=== PATIENT | male | born 1990 | race Hispanic/Latino ===

== ENCOUNTER 2017-07-24 06:33 | Emergency (ER) | payer SELFPAY ==
--- NOTE | 2017-07-24 07:09 | ER ---
Nurse's Notes [facility] Name: Elias Billy Age: 27 yrs Sex: Male : 1990 Arrival Date: 07/24/2017 Time: 06:34 Bed 19 Private MD: Diagnosis: Low back pain Presentation: 07/24 06:47 Presenting complaint: Patient states: "I've been having lower back pain since yesterday bs1 and it just progressively got worse, I have a hx of a punctured disc when I played football.". Transition of care: patient was not received from another setting of care. Onset of symptoms was July 23, 2017. Initial Sepsis Screen: Does the patient meet any 2 criteria? No. Patient's initial sepsis screen is negative. Does the patient have a suspected source of infection? No. Patient's initial sepsis screen is negative. Care prior to arrival: Medication(s) given: Tylenol, 1000 mg. 06:47 Method Of Arrival: Ambulatory bs1 06:47 Acuity: SUSIE 4 bs1 Triage Assessment: 06:58 General: Appears. ao Historical: - Allergies: 06:49 No Known Allergies; bs1 - Home Meds: 06:49 None [Active]; bs1 - PMHx: 06:49 Cellulitis; Panic Attacks; punctured disc; bs1 - PSHx: 06:49 None; bs1 - Immunization history:: Adult Immunizations up to date. - Social history:: Smoking status: Patient/guardian denies using tobacco. Screenin:58 Abuse screen: Denies threats or abuse. Denies injuries from another. Nutritional ao screening: No deficits noted. Tuberculosis screening: No symptoms or risk factors identified. Fall Risk None identified. Assessment: 07:15 General: Appears in no apparent distress. uncomfortable, Behavior is calm, cooperative. em General: Reports hx of herniated disc, but was aggravated yesterday. Pain: Complains of pain in low back area Pain currently is 10 out of 10 on a pain scale. Pain began 1 day ago. Neuro: Level of Consciousness is awake, alert, obeys commands, Oriented to person, place, time, situation, Denies paresthesias. Cardiovascular: Capillary refill < 3 seconds Patient's skin is warm and dry. Respiratory: Airway is patent Respiratory effort is even, unlabored, Respiratory pattern is regular, symmetrical. GI: Abdomen is round. : No signs and/or symptoms were reported regarding the genitourinary system. Derm: Skin is intact, Skin is pink, warm \\T\\ dry. Musculoskeletal: Circulation, motion, and sensation intact. Capillary refill < 3 seconds, Range of motion: intact in all extremities. 19:29 Reassessment: Patient appears in no apparent distress at this time. I agree with the assessments above by Miguel A Berrios LVN. Vital Signs: 06:49 BP 136 / 81; Pulse 70; Resp 17; Temp 98.1(O); Pulse Ox 100% on R/A; Weight 108.86 kg; bs1 Height 5 ft. 11 in. (180.34 cm) (R); Pain 10/10; 07:28 BP 123 / 78; Pulse 67; Resp 16; Pulse Ox 100% on R/A; em 06:49 Body Mass Index 33.47 (108.86 kg, 180.34 cm) bs1 ED Course: 06:34 Patient arrived in ED. am2 06:48 Triage completed. bs1 06:49 Mike Cabrales PA is PHCP. jr8 06:49 Ben Arias MD is Attending Physician. jr8 07:23 Miguel A Berrios LVN is Primary Nurse. em 07:27 Arm band placed on. em 07:27 No provider procedures requiring assistance completed. Patient did not have IV access em during this emergency room visit. 07:28 Patient has correct armband on for positive identification. em Administered Medications: No medications were administered Outcome: 07:09 Discharge ordered by . jr8 07:28 Discharged to home ambulatory. em 07:28 Condition: good 07:28 Discharge instructions given to patient, Instructed on discharge instructions, follow up and referral plans. medication usage, Demonstrated understanding of instructions, follow-up care, medications, Prescriptions given X 3. 07:29 Patient left the ED. em Signatures: Miguel A Berrios LVN LVN em Susi King RN RN Mike Cabrales PA PA jr8 Isaias Downs RN RN ao Moreno, Amanda am2 Lesley Mukherjee RN RN bs1
--- NOTE | 2017-07-24 07:09 | EDPHYS ---
Physician Documentation [facility] Name: Elias Billy Age: 27 yrs Sex: Male : 1990 Arrival Date: 07/24/2017 Time: 06:34 Bed 19 Private MD: ED Physician Ben Arias HPI: 07/24 07:07 This 27 yrs old Male presents to ER via Ambulatory with complaints of Low Back jr8 Pain. 07:07 The patient presents with pain that is acute. The symptoms are located in the low back. jr8 The pain does not radiate. The problem was sustained from a chronic condition, the patient has known disc disease. Onset: The symptoms/episode began/occurred acutely, yesterday. Modifying factors: The patient symptoms are alleviated by nothing, the patient symptoms are aggravated by bending. Associated signs and symptoms: The patient has no apparent associated signs or symptoms. Severity of symptoms: At their worst the symptoms were moderate, in the emergency department the symptoms are unchanged. The patient has experienced similar episodes in the past, several times. The patient has not recently seen a physician. Historical: - Allergies: 06:49 No Known Allergies; bs1 - Home Meds: 06:49 None [Active]; bs1 - PMHx: 06:49 Cellulitis; Panic Attacks; punctured disc; bs1 - PSHx: 06:49 None; bs1 - Immunization history:: Adult Immunizations up to date. - Social history:: Smoking status: Patient/guardian denies using tobacco. ROS: 07:07 Eyes: Negative for injury, pain, redness, and discharge, ENT: Negative for injury, jr8 pain, and discharge, Neck: Negative for injury, pain, and swelling, Cardiovascular: Negative for chest pain, palpitations, and edema, Respiratory: Negative for shortness of breath, cough, wheezing, and pleuritic chest pain, Abdomen/GI: Negative for abdominal pain, nausea, vomiting, diarrhea, and constipation, MS/Extremity: Negative for injury and deformity, Skin: Negative for injury, rash, and discoloration, Neuro: Negative for headache, weakness, numbness, tingling, and seizure. 07:07 Back: Positive for decreased range of motion, pain at rest, pain with movement, of the low back area, Negative for radiated pain. Exam: 07:07 Cardiovascular: Regular rate and rhythm with a normal S1 and S2. No gallops, murmurs, jr8 or rubs. Normal PMI, no JVD. No pulse deficits. Respiratory: Lungs have equal breath sounds bilaterally, clear to auscultation and percussion. No rales, rhonchi or wheezes noted. No increased work of breathing, no retractions or nasal flaring. Abdomen/GI: Soft, non-tender, with normal bowel sounds. No distension or tympany. No guarding or rebound. No evidence of tenderness throughout. Skin: Warm, dry with normal turgor. Normal color with no rashes, no lesions, and no evidence of cellulitis. MS/ Extremity: Pulses equal, no cyanosis. Neurovascular intact. Full, normal range of motion. Neuro: Awake and alert, GCS 15, oriented to person, place, time, and situation. Cranial nerves II-XII grossly intact. Motor strength 5/5 in all extremities. Sensory grossly intact. Cerebellar exam normal. Normal gait. 07:07 Back: pain, that is moderate, of the right low back, ROM is painful, with flexion, normal spinal alignment noted, CVA tenderness, is absent, muscle spasm, is appreciated in the right mid back and right low back. Vital Signs: 06:49 BP 136 / 81; Pulse 70; Resp 17; Temp 98.1(O); Pulse Ox 100% on R/A; Weight 108.86 kg; bs1 Height 5 ft. 11 in. (180.34 cm) (R); Pain 10/10; 07:28 BP 123 / 78; Pulse 67; Resp 16; Pulse Ox 100% on R/A; em 06:49 Body Mass Index 33.47 (108.86 kg, 180.34 cm) bs1 MDM: 06:49 Patient medically screened. jr8 07:07 Data reviewed: vital signs, nurses notes, and as a result, I will discharge patient. jr8 Data interpreted: Pulse oximetry: on room air is 100 %. Interpretation: normal. Counseling: I had a detailed discussion with the patient and/or guardian regarding: the historical points, exam findings, and any diagnostic results supporting the discharge/admit diagnosis, the need for outpatient follow up, a family practitioner, to return to the emergency department if symptoms worsen or persist or if there are any questions or concerns that arise at home. Administered Medications: No medications were administered Disposition: 05/02/18 07:09 Discharged to Home. Impression: Low back pain. - Condition is Stable. - Discharge Instructions: Back Pain, Adult, Musculoskeletal Pain, Back Exercises, Ffhe-oz-Cycf, Heat Therapy. - Prescriptions for Ibuprofen 800 mg Oral Tablet - take 1 tablet by ORAL route every 12 hours As needed take with food; 20 tablet. Cyclobenzaprine 10 mg Oral Tablet - take 1 tablet by ORAL route every 8 hours As needed; 30 tablet. Tramadol 50 mg Oral Tablet - take 1 tablet by ORAL route every 8 hours as needed; 12 tablet. - Work release form, Family Work Release, Medication Reconciliation Form, Thank You Letter, Antibiotic Education, Prescription Opioid Use form. - Follow up: Private Physician; When: 5 - 6 days; Reason: Recheck today's complaints, Continuance of care, Re-evaluation by your physician. - Problem is new. - Symptoms have improved. Addendum: 08/15/2017 00:58 Co-signature as Attending Physician, Ben Arias MD available for consultation at p s1 all times. . Signatures: Miguel A Berrios, PRODUCTION TEAM LEADER PRODUCTION TEAM LEADER em Mike Cabrales PA PA jr8 Ben Arias MD MD ps1 Lesley Mukherjee RN RN bs1 Corrections: (The following items were deleted from the chart) 07/24 07:29 07:09 07/24/2017 07:09 Discharged to Home. Impression: Low back pain. Condition is em Stable. Forms are Medication Reconciliation Form, Thank You Letter, Antibiotic Education, Prescription Opioid Use. Follow up: Private Physician; When: 5 - 6 days; Reason: Recheck today's complaints, Continuance of care, Re-evaluation by your physician. Problem is new. Symptoms have improved. jr8
== END 2017-07-24 07:29 | disposition home or self-care (01) ==
LOC: ER 06:33
DX: M54.5 Low back pain (principal)
CPT/HCPCS: 99282

== ENCOUNTER 2017-08-14 07:18 | Emergency (ER) | payer SELFPAY ==
[2017-08-14] MEDS ORDERED: CYCLOBENZAPRINE 10 MG TAB ONE (07:30)
[2017-08-14] MEDS ORDERED: MEPERIDINE HCL 50 MG/ML AMP ONE (07:30)
[2017-08-14] MEDS ORDERED: DEXAMETHASONE 10 MG/ML VIAL ONE (07:31)
[2017-08-14] MEDS ORDERED: ONDANSETRON 4 MG/2 ML VIAL ONE (07:39)
--- NOTE | 2017-08-14 09:24 | ER ---
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 Transition of care: patient was not received from another setting of care. Onset of symptoms was August 14, 2017. 07:15 Method Of Arrival: EMS: [facility] sv 07:16 Risk Assessment: Do you want to hurt yourself or someone else? Patient reports no sv desire to harm self or others. Initial Sepsis Screen: Does the patient meet any 2 criteria? No. Patient's initial sepsis screen is negative. Does the patient have a suspected source of infection? No. Patient's initial sepsis screen is negative. Care prior to arrival: None. 07:16 Acuity: SUSIE 4 sv Triage Assessment: 07:20 General: Appears uncomfortable, well developed, Behavior is cooperative. Pain: sv Complains of pain in back Pain does not radiate. Pain currently is 10 out of 10 on a pain scale. Quality of pain is described as sharp, Pain began 30 min ago. Is continuous, Alleviated by nothing. Aggravated by increased activity, repositioning, Noted to be grimacing, Also complains of no other associated symptoms. Current management - is no interventions. EENT: No signs and/or symptoms were reported regarding the EENT system. Neuro: Level of Consciousness is awake, alert, obeys commands, Oriented to person, place, time, situation, Speech is normal. Cardiovascular: Patient's skin is warm and dry. Respiratory: Respiratory effort is even, unlabored, Respiratory pattern is regular, symmetrical. GI: No signs and/or symptoms were reported involving the gastrointestinal system. : No signs and/or symptoms were reported regarding the genitourinary system. Derm: Skin is pink, warm \T\ dry. Musculoskeletal: Range of motion: intact in all extremities. Historical: - Allergies: 07:25 No Known Allergies; sv - Home Meds: 07:25 None [Active]; sv - PMHx: 07:25 Cellulitis; Panic Attacks; ruptured disk; sv - PSHx: 07:25 None; sv - Immunization history:: Adult Immunizations up to date. - Social history:: Smoking status: Patient/guardian denies using tobacco, Patient uses alcohol, occasionally. - Ebola Screening: : No symptoms or risks identified at this time. - Family history:: not pertinent. - Hospitalizations: : No recent hospitalization is reported. Screenin:27 Abuse screen: Denies threats or abuse. Denies injuries from another. Nutritional sv screening: No deficits noted. Tuberculosis screening: No symptoms or risk factors identified. Fall Risk No fall in past 12 months (0 pts). No secondary diagnosis (0 pts). No IV (0 pts). Ambulatory Aid- None/Bed Rest/Nurse Assist (0 pts). Gait- Normal/Bed Rest/Wheelchair (0 pts) Mental Status- Oriented to own ability (0 pts). Total Mcdowell Fall Scale indicates No Risk (0-24 pts). Assessment: 07:28 Reassessment: See triage assessment. sv 08:24 Reassessment: Patient appears in no apparent distress at this time. Patient and/or sv family updated on plan of care and expected duration. Pain level reassessed. Patient is alert, oriented x 3, equal unlabored respirations, skin warm/dry/pink. Patient states feeling better. Patient states symptoms have improved. 09:39 Reassessment: Patient appears in no apparent distress at this time. Patient and/or sv family updated on plan of care and expected duration. Pain level reassessed. Patient is alert, oriented x 3, equal unlabored respirations, skin warm/dry/pink. Vital Signs: 07:25 BP 135 / 79; Pulse 73; Resp 20; Temp 98.7(O); Pulse Ox 97% on R/A; Weight 111.13 kg sv (R); Height 5 ft. 11 in. (180.34 cm) (R); Pain 10/10; 08:10 BP 117 / 76; Pulse 72; Resp 19; Pulse Ox 100% on R/A; jb1 09:16 BP 119 / 78; Pulse 67; Resp 18; Pulse Ox 98% ; sv 07:25 Body Mass Index 34.17 (111.13 kg, 180.34 cm) ED Course: 07:20 Patient arrived in ED. em1 07:21 Juan M Bradshaw, RN is Primary Nurse. mg2 07:22 Delmis Barrett, ANANT is Primary Nurse. sv 07:23 Joon Frazier MD is Attending Physician. rn 07:24 Triage completed. sv 07:26 Arm band placed on right wrist. sv 07:27 Patient has correct armband on for positive identification. Bed in low position. Call sv light in reach. Side rails up X2. Pulse ox on. NIBP on. Door closed. 07:35 Inserted saline lock: 18 gauge in right antecubital area, using aseptic technique. sg 07:42 Patient moved to radiology via stretcher. sv 07:46 None, None is Private Physician. sv 08:03 XRAY Lumbar Spine (3 Views) In Process Unspecified. EDMS 08:03 X-ray completed. Patient moved back from radiology. jb2 09:38 No provider procedures requiring assistance completed. IV discontinued, intact, sv bleeding controlled, No redness/swelling at site. Pressure dressing applied. Administered Medications: 07:35 Drug: Demerol 50 mg Route: IVP; Infused Over: 2 mins; Site: right antecubital; sv 08:24 Follow up: Response: No adverse reaction sv 07:35 Drug: Flexeril 10 mg Route: PO; sv 08:24 Follow up: Response: No adverse reaction sv 07:37 Drug: Decadron - Dexamethasone 10 mg Route: IVP; Infused Over: 2 mins; Site: right sv antecubital; 08:23 Follow up: Response: No adverse reaction sv Outcome: 09:24 Discharge ordered by MD. rn 09:39 Discharged to home via wheelchair, with family. sv 09:39 Condition: stable 09:39 Condition: improved 09:39 Discharge instructions given to patient, family, Instructed on discharge instructions, follow up and referral plans. no drinking with medication, no driving heavy equipment, medication usage, Demonstrated understanding of instructions, follow-up care, medications, Prescriptions given X 3. 09:39 Patient left the ED. sv Signatures: Dispatcher [employer] EDMS Julio Rene jb1 Delmis Barrett, ANANT [place] sv Yakov Lyn RN RN Micheal Jarrett jb2 Joon Frazier MD MD rn Martinez, Eric em1 Juan M Bradshaw, ANANT RN mg2
--- NOTE | 2017-08-14 09:25 | EDPHYS ---
Physician Documentation [facility] Name: Elias Billy Age: 27 yrs Sex: Male : 1990 Arrival Date: 08/14/2017 Time: 07:20 Bed 5 Private MD: None, None ED Physician Joon Frazier HPI: 08/14 07:26 This 27 yrs old Male presents to ER via EMS with complaints of Back Pain. rn 07:26 The patient presents with pain that is acute. The symptoms are located in the low back. rn Onset: The symptoms/episode began/occurred just prior to arrival. The pain radiates to the right leg and left leg. Associated signs and symptoms: Pertinent negatives: incontinence, urinary retention, weakness. Severity of symptoms: At their worst the symptoms were moderate, in the emergency department the symptoms are unchanged. The patient has experienced similar episodes in the past. Reports bent over to get tools this AM, back began to hurt, + tingling of legs but now better, has chronic back pain since high school weight lifting injury, has known herniated disc, no weakness of legs, no bowel/bladder problems. . Historical: - Allergies: 07:25 No Known Allergies; sv - Home Meds: 07:25 None [Active]; sv - PMHx: 07:25 Cellulitis; Panic Attacks; ruptured disk; sv - PSHx: 07:25 None; sv - Immunization history:: Adult Immunizations up to date. - Social history:: Smoking status: Patient/guardian denies using tobacco, Patient uses alcohol, occasionally. - Ebola Screening: : No symptoms or risks identified at this time. - Family history:: not pertinent. - Hospitalizations: : No recent hospitalization is reported. ROS: 07:26 Constitutional: Negative for fever, chills, and weight loss, Neck: Negative for injury, rn pain, and swelling, Cardiovascular: Negative for chest pain, palpitations, and edema, Respiratory: Negative for shortness of breath, cough, wheezing, and pleuritic chest pain, Abdomen/GI: Negative for abdominal pain, nausea, vomiting, diarrhea, and constipation, Back: + low back pain MS/Extremity: Negative for injury and deformity, Skin: Negative for injury, rash, and discoloration, Neuro: Negative for headache, weakness, numbness, and seizure. Exam: 07:26 Constitutional: This is a well developed, well nourished patient who is awake, alert, rn appears uncomfortable, laying flat Neck: Trachea midline, no thyromegaly or masses palpated, and no cervical lymphadenopathy. Supple, full range of motion without nuchal rigidity, or vertebral point tenderness. No Meningismus. Cardiovascular: Regular rate and rhythm with a normal S1 and S2. No gallops, murmurs, or rubs. Normal PMI, no JVD. No pulse deficits. Respiratory: Lungs have equal breath sounds bilaterally, clear to auscultation and percussion. No rales, rhonchi or wheezes noted. No increased work of breathing, no retractions or nasal flaring. Abdomen/GI: Soft, non-tender, with normal bowel sounds. No distension or tympany. No guarding or rebound. No evidence of tenderness throughout. Back: No spinal tenderness. + tenderness across lower back, no skin changes MS/ Extremity: Pulses equal, no cyanosis. Neurovascular intact. Full, normal range of motion. Equal circumference. Neuro: Awake and alert, GCS 15, oriented to person, place, time, and situation. Motor strength 5/5 in all extremities. Sensory grossly intact. + straight leg raise test R>L Vital Signs: 07:25 BP 135 / 79; Pulse 73; Resp 20; Temp 98.7(O); Pulse Ox 97% on R/A; Weight 111.13 kg sv (R); Height 5 ft. 11 in. (180.34 cm) (R); Pain 10/10; 08:10 BP 117 / 76; Pulse 72; Resp 19; Pulse Ox 100% on R/A; jb1 09:16 BP 119 / 78; Pulse 67; Resp 18; Pulse Ox 98% ; sv 07:25 Body Mass Index 34.17 (111.13 kg, 180.34 cm) sv MDM: 07:23 Patient medically screened. rn 09:22 Differential diagnosis: arthritis, chronic back pain, Fatigue Osteoarthritis sprain. rn Data reviewed: vital signs, nurses notes, radiologic studies, plain films, and as a result, I will discharge patient. Counseling: I had a detailed discussion with the patient and/or guardian regarding: the historical points, exam findings, and any diagnostic results supporting the discharge/admit diagnosis, radiology results, the need for outpatient follow up, to return to the emergency department if symptoms worsen or persist or if there are any questions or concerns that arise at home. Response to treatment: the patient's symptoms have markedly improved after treatment, and as a result, I will discharge patient. Special discussion: I discussed with the patient/guardian in detail that at this point there is no indication for admission to the hospital. It is understood, however, that if the symptoms persist or worsen the patient needs to return immediately for re-evaluation. Further emergent ED testing is not indicated at this point in time. I discussed with the patient/guardian in detail the need to arrange with the PCP or specialist further outpatient testing, MRI. 08/14 07:26 Order name: XRAY Lumbar Spine (3 Views) rn 08/14 07:26 Order name: IV Start; Complete Time: 07:35 rn Administered Medications: 07:35 Drug: Demerol 50 mg Route: IVP; Infused Over: 2 mins; Site: right antecubital; sv 08:24 Follow up: Response: No adverse reaction sv 07:35 Drug: Flexeril 10 mg Route: PO; sv 08:24 Follow up: Response: No adverse reaction sv 07:37 Drug: Decadron - Dexamethasone 10 mg Route: IVP; Infused Over: 2 mins; Site: right sv antecubital; 08:23 Follow up: Response: No adverse reaction sv Disposition: 08/14/17 09:24 Discharged to Home. Impression: Muscle spasm of back, Low back pain. - Condition is Stable. - Discharge Instructions: Back Pain, Adult, Muscle Cramps and Spasms, Musculoskeletal Pain. - Prescriptions for Ultram 50 mg Oral Tablet - take 1 tablet by ORAL route every 6 hours As needed; 20 tablet. Cyclobenzaprine 10 mg Oral Tablet - take 1 tablet by ORAL route every 8 hours As needed; 15 tablet. Medrol (Lamont) 4 mg Oral Tablets, Dose Pack - take 1 tablet by ORAL route as directed - follow package instructions; 1 packet. - Medication Reconciliation Form, Thank You Letter, Antibiotic Education, Prescription Opioid Use form. - Work release form (08/14/17 09:52). em1 - Follow up: Private Physician; When: As needed; Reason: Recheck today's complaints, Re-evaluation by your physician. - Problem is an acute exacerbation. - Symptoms have improved. Signatures: Dispatcher [employer] Delmis Rios, Joon Zayas RN, MD MD rn Martinez, Demarcus [email or web address] Corrections: (The following items were deleted from the chart) 09:39 09:24 08/14/2017 09:24 Discharged to Home. Impression: Muscle spasm of back; Low back sv pain. Condition is Stable. Forms are Medication Reconciliation Form, Thank You Letter, Antibiotic Education, Prescription Opioid Use. Follow up: Private Physician; When: As needed; Reason: Recheck today's complaints, Re-evaluation by your physician. Problem is an acute exacerbation. Symptoms have improved. rn
--- NOTE | 2017-08-14 09:46 | RAD REPORT ---
EXAM DESCRIPTION: Lumbar Spine 3 Views CLINICAL HISTORY: Radiculopathy COMPARISON: None. FINDINGS: Vertebral body heights appear maintained. No compression fracture noted. Disc spaces are m aintained. No spondylolysis or spondylolisthesis. IMPRESSION: Negative study.
== END 2017-08-14 09:39 | disposition home or self-care (01) ==
LOC: ER 07:18
DX: M62.830 Muscle spasm of back (principal)
CPT/HCPCS: 72100; 96374; 96375; 99284; J1100; J2175; J2405

== ENCOUNTER 2017-11-10 13:55 | Emergency (ER) | payer SELFPAY ==
--- NOTE | 2017-11-10 14:50 | RAD REPORT ---
EXAM DESCRIPTION: RAD - Chest Pa And Lat (2 Views) - 11/10/2017 2:42 pm CLINICAL HISTORY: Chest pain COMPARISON: December 2016 TECHNIQUE: PA and lateral views of the chest were obtained. FINDINGS: The lungs are clear. Heart size is normal and central vasculature is within normal limit s. No pleural effusion or pneumothorax seen. No acute bony finding noted. No aortic abnormality. IMPRESSION: No acute cardiopulmonary process. No significant change from comparison.
--- NOTE | 2017-11-10 14:51 | RAD REPORT ---
EXAM DESCRIPTION: CT - Head Brain Wo Cont - 11/10/2017 2:33 pm CLINICAL HISTORY: Headache, dizziness COMPARISON: April 2017 TECHNIQUE: Axial 5 mm thick images of the head were obtained without IV contrast. All CT scans are performed using dose optimization technique as appropriate and may include automated exposure control or mA/KV adjustment according to patient size. FINDINGS: No intracranial hemorrhage, mass, edema or shift of mid-line structures. No acute infarcti on changes seen. No abnormal extra-axial fluid collections. Ventricles are normal. Mastoid air cells and visualized portions of the paranasal sinuses are clear. No acute bony findings. No significant change from comparison. IMPRESSION: Negative non-contrast CT head examination.
[2017-11-10] MEDS ORDERED: HYDROCODONE/APAP 7.5/325 MG TAB ONE (15:02)
[2017-11-10 15:28] LABS: Urine Blood 1+ (NEG); Urine Glucose NEGATIVE (NEG); Urine Protein NEGATIVE (NEG); Urine Specific Gravity 1.025 (1.005-1.030); Urine pH 5.5 (5.0-7.0)
--- NOTE | 2017-11-10 15:46 | ER ---
Nurse's Notes [facility] Name: Elias Billy Age: 27 yrs Sex: Male : 1990 Arrival Date: 11/10/2017 Time: 13:58 Bed 15 Private MD: None, None Diagnosis: Headache Presentation: 11/10 14:09 Presenting complaint: Patient states: I have had a headache since yesterday and I feel la1 dizzy. Transition of care: patient was not received from another setting of care. Onset of symptoms was November 10, 2017. Risk Assessment: Do you want to hurt yourself or someone else? Patient reports no desire to harm self or others. Initial Sepsis Screen: Does the patient meet any 2 criteria? No. Patient's initial sepsis screen is negative. Does the patient have a suspected source of infection? No. Patient's initial sepsis screen is negative. Care prior to arrival: None. 14:09 Method Of Arrival: Ambulatory la1 14:09 Acuity: SUSIE 3 la1 Triage Assessment: 14:11 Headache History: The patient has had previous headaches and this one is similar to la1 previous episodes. General: Appears in no apparent distress. Behavior is calm, cooperative. Pain: Complains of pain in head Pain currently is 6 out of 10 on a pain scale. Pain began 1 day ago. Also complains of no other associated symptoms. Historical: - Allergies: 14:09 No Known Allergies; la1 - PMHx: 14:09 Cellulitis; Panic Attacks; punctured disc; ruptured disk; la1 - Immunization history:: Adult Immunizations up to date. - Social history:: Smoking status: Patient/guardian denies using tobacco. - Ebola Screening: : No symptoms or risks identified at this time. Screenin:11 Abuse screen: Denies threats or abuse. Nutritional screening: No deficits noted. la1 Tuberculosis screening: No symptoms or risk factors identified. Fall Risk None identified. Assessment: 14:10 Pain: Complains of pain in head. Neuro: Level of Consciousness is awake, alert, obeys la1 commands, Oriented to person, place, time, situation, Bead Wrapper are equal bilaterally Moves all extremities. Full function Gait is steady, Speech is normal, Facial symmetry appears normal, Pupils are PERRLA, Intact. Cardiovascular: Denies chest pain, diaphoresis, shortness of breath, Patient's skin is warm and dry. Respiratory: Airway is patent Respiratory effort is even, unlabored, Respiratory pattern is regular, symmetrical. 15:12 Reassessment: Patient appears in no apparent distress at this time. No changes from la1 previously documented assessment. Patient and/or family updated on plan of care and expected duration. Pain level reassessed. Patient is alert, oriented x 3, equal unlabored respirations, skin warm/dry/pink. Vital Signs: 14:09 BP 125 / 84; Pulse 84; Resp 16; Temp 99.2(TE); Pulse Ox 100% on R/A; Weight 108.86 kg; la1 Height 5 ft. 11 in. (180.34 cm); 15:52 BP 113 / 83; Pulse 61; Resp 19; Temp 97.6; Pulse Ox 100% on R/A; la1 14:09 Body Mass Index 33.47 (108.86 kg, 180.34 cm) la1 [place] Coma Score: 14:41 Eye Response: spontaneous(4). Verbal Response: oriented(5). Motor Response: obeys kb commands(6). Total: 15. ED Course: 13:58 Patient arrived in ED. mr 13:58 None, None is Private Physician. mr 14:02 Miguel A Berrios LVN is Primary Nurse. em 14:05 Marie Ndiaye FNP-C is [facility]. kb 14:05 Yasir Biswas MD is Attending Physician. kb 14:09 Triage completed. la1 14:09 Arm band placed on left wrist. la1 14:11 Call light in reach. Side rails up X 1. la1 14:11 No provider procedures requiring assistance completed. la1 14:28 EKG done, by ED staff, reviewed by Marie ALEGRIA. mh5 14:31 CT completed. Patient moved to CT via wheelchair. Patient moved to radiology. bq 14:31 CT Head Brain wo Cont In Process Unspecified. EDMS 14:39 Chest Pa And Lat (2 Views) XRAY In Process Unspecified. EDMS 15:52 Patient did not have IV access during this emergency room visit. la1 Administered Medications: 15:07 Drug: [place] (7.5 mg-325 mg) 1 tabs Route: PO; em 15:52 Follow up: Response: No adverse reaction; Pain is decreased la1 Outcome: 15:46 Discharge ordered by MD. velasco 15:52 Discharged to home ambulatory. la1 15:52 Condition: stable 15:52 Discharge instructions given to patient, Instructed on discharge instructions, follow up and referral plans. Demonstrated understanding of instructions, follow-up care. 15:52 Patient left the ED. la1 Signatures: Dispatcher [employer] EDMarie Chapman, SUPERVISOR STERILE PROCESSING-C SUPERVISOR STERILE PROCESSING-CkSola Dent mr Soledadelena, Sagrario Berrios, Miguel A, CASE ASSEMBLER CASE ASSEMBLER Jacobo Fernández, RN RN [email or web address] Sola Bowman [facility] Corrections: (The following items were deleted from the chart) 14:11 14:10 Respiratory: Airway is patent Respiratory effort is even, unlabored, Respiratory la1 pattern is regular, symmetrical, snoring la1
--- NOTE | 2017-11-10 15:46 | EDPHYS ---
Physician Documentation [facility] Name: Elias Billy Age: 27 yrs Sex: Male : 1990 Arrival Date: 11/10/2017 Time: 13:58 Bed 15 Private MD: None, None ED Physician Yasir Biswas HPI: 11/10 14:41 This 27 yrs old Male presents to ER via Ambulatory with complaints of Headache.kb 14:41 The patient complains of pain to the head. The patient describes the headache as kb constant. Onset: The symptoms/episode began/occurred yesterday. Associated signs and symptoms: Pertinent positives: diffusely, dizziness, Pertinent negatives: altered mental status, fever, malaise, nausea, neck stiffness, paresthesias, Photophobia rash, sinus congestion, sinus tenderness, vision changes, vision loss, vomiting, weakness, vertigo. Severity of symptoms: At its worst the pain was mild, moderate, in the emergency department the pain is unchanged. Headache History: Denies prior headaches. The symptoms are alleviated by nothing. the symptoms are aggravated by nothing. The patient has not experienced similar symptoms in the past. The patient has not recently seen a physician. Pt reports headache, dizziness and chest tightness since yesterday. States the dizziness has been intermittent for a while, takes meclizine as needed. Historical: - Allergies: 14:09 No Known Allergies; la1 - PMHx: 14:09 Cellulitis; Panic Attacks; punctured disc; ruptured disk; la1 - Immunization history:: Adult Immunizations up to date. - Social history:: Smoking status: Patient/guardian denies using tobacco. - Ebola Screening: : No symptoms or risks identified at this time. ROS: 14:41 Constitutional: Negative for fever, chills, and weight loss, Cardiovascular: Negative kb for palpitations, and edema. +chest tightness Respiratory: Negative for shortness of breath, cough, wheezing, and pleuritic chest pain, Abdomen/GI: Negative for abdominal pain, nausea, vomiting, diarrhea, and constipation, MS/Extremity: Negative for injury and deformity, Skin: Negative for injury, rash, and discoloration. 14:41 Neuro: Positive for dizziness, headache. Exam: 14:41 Constitutional: This is a well developed, well nourished patient who is awake, alert, kb and in no acute distress. Head/Face: Normocephalic, atraumatic. ENT: Nares patent. No nasal discharge, no septal abnormalities noted. Tympanic membranes are normal and external auditory canals are clear. Oropharynx with no redness, swelling, or masses, exudates, or evidence of obstruction, uvula midline. Mucous membranes moist. Neck: Trachea midline, no thyromegaly or masses palpated, and no cervical lymphadenopathy. Supple, full range of motion without nuchal rigidity, or vertebral point tenderness. No Meningismus. Chest/axilla: Normal chest wall appearance and motion. Nontender with no deformity. No lesions are appreciated. Cardiovascular: Regular rate and rhythm with a normal S1 and S2. No gallops, murmurs, or rubs. Normal PMI, no JVD. No pulse deficits. Respiratory: Lungs have equal breath sounds bilaterally, clear to auscultation and percussion. No rales, rhonchi or wheezes noted. No increased work of breathing, no retractions or nasal flaring. Abdomen/GI: Soft, non-tender, with normal bowel sounds. No distension or tympany. No guarding or rebound. No evidence of tenderness throughout. Skin: Warm, dry with normal turgor. Normal color with no rashes, no lesions, and no evidence of cellulitis. MS/ Extremity: Pulses equal, no cyanosis. Neurovascular intact. Full, normal range of motion. Neuro: Awake and alert, GCS 15, oriented to person, place, time, and situation. Cranial nerves II-XII grossly intact. Motor strength 5/5 in all extremities. Sensory grossly intact. Cerebellar exam normal. Normal gait. Vital Signs: 14:09 BP 125 / 84; Pulse 84; Resp 16; Temp 99.2(TE); Pulse Ox 100% on R/A; Weight 108.86 kg; la1 Height 5 ft. 11 in. (180.34 cm); 15:52 BP 113 / 83; Pulse 61; Resp 19; Temp 97.6; Pulse Ox 100% on R/A; la1 14:09 Body Mass Index 33.47 (108.86 kg, 180.34 cm) la1 [place] Coma Score: 14:41 Eye Response: spontaneous(4). Verbal Response: oriented(5). Motor Response: obeys kb commands(6). Total: 15. MDM: 14:05 Patient medically screened. kb 14:41 Data reviewed: vital signs, nurses notes. Data interpreted: Pulse oximetry: on room air kb is 100 %. Interpretation: normal. ED course: Ambulates with steady gait. 15:04 Counseling: I had a detailed discussion with the patient and/or guardian regarding: the kb historical points, exam findings, and any diagnostic results supporting the discharge/admit diagnosis, radiology results, the need for outpatient follow up, a family practitioner, to return to the emergency department if symptoms worsen or persist or if there are any questions or concerns that arise at home. 11/10 15:17 Order name: Urine Dipstick--Ancillary (enter results); Complete Time: 15:28 bd 11/10 14:09 Order name: CT Head Brain wo Cont; Complete Time: 14:55 kb 11/10 14:09 Order name: EKG; Complete Time: 14:09 kb 11/10 14:09 Order name: EKG - Nurse/Tech; Complete Time: 14:27 kb 11/10 14:09 Order name: Chest Pa And Lat (2 Views) XRAY; Complete Time: 14:55 kb 11/10 15:04 Order name: Urine Dipstick-Ancillary (obtain specimen); Complete Time: 15:07 kb Administered Medications: 15:07 Drug: [place] (7.5 mg-325 mg) 1 tabs Route: PO; em 15:52 Follow up: Response: No adverse reaction; Pain is decreased la1 Disposition: 11/11 09:16 Co-signature as Attending Physician, Yasir Biswas MD I agree with the assessment and [facility] plan of care. Disposition: 11/10/17 15:46 Discharged to Home. Impression: Headache. - Condition is Stable. - Discharge Instructions: Vertigo, [id number], General Headache Without Cause, [id number]. - Medication Reconciliation Form, Thank You Letter, Antibiotic Education, Prescription Opioid Use form. - Follow up: Emergency Department; When: As needed; Reason: Worsening of condition. Follow up: Private Physician; When: 2 - 3 days; Reason: Recheck today's complaints, Continuance of care, Re-evaluation by your physician. Signatures: Dispatcher [employer] Marie Van, BETO-C BETO-Yasir Ferreira MD MD cha Munoz, Edgar, ELDER ASSISTANT ELDER ASSISTANT Jacobo Fernández, RN RN la1 Corrections: (The following items were deleted from the chart) 11/10 15:52 15:46 11/10/2017 15:46 Discharged to Home. Impression: Headache. Condition is Stable. la1 Discharge Instructions: General Headache Without Cause, [id number]. Forms are Medication Reconciliation Form, Thank You Letter, Antibiotic Education, Prescription Opioid Use. Follow up: Emergency Department; When: As needed; Reason: Worsening of condition. Follow up: Private Physician; When: 2 - 3 days; Reason: Recheck today's complaints, Continuance of care, Re-evaluation by your physician. kb
--- NOTE | 2017-11-11 07:51 | EKG ---
Test Date: 2017-11-10 Test Time: 14:20:27 [employer] Mechanic: NORI MEASUREMENT RESULTS: Intervals: Rate: 69 MD: 148 QRSD: 98 QT: 376 QTc: 402 Stewart: P: 2 MD: 148 QRS: 16 T: 8 INTERPRETIVE STATEMENTS: Normal sinus rhythm Normal ECG Compared to ECG 04/29/2017 20:21:30 No significant changes Electronically Signed On 11-11-17 07:50:31 CDT by Ayush Bazzi
== END 2017-11-10 15:52 | disposition home or self-care (01) ==
LOC: ER 13:55
DX: R51 Headache (principal)
CPT/HCPCS: 70450; 71046; 81003; 93005; 99284

== ENCOUNTER 2018-11-06 06:33 | Emergency (ER) | payer SELFPAY ==
[2018-11-06] MEDS ORDERED: LORAZEPAM 1 MG TABLET ONE (07:29)
--- NOTE | 2018-11-06 07:29 | ER ---
Nurse's Notes [facility] Name: Elias Billy Age: 28 yrs Sex: Male : 1990 Arrival Date: 11/06/2018 Time: 06:34 Bed 17 Private MD: Diagnosis: Adverse effect of other antidepressants Presentation: 11/06 06:35 Presenting complaint: Patient states: that he is feeling increasingly sad after divorce fc a few months ago. Pt went to see therapist 1 week ago and was put on Zoloft and Hydroxyzine. Yesterday he increased the dose of Zoloft and the feelings of suicide became worse. He was told by the therapist to come to ER if he felt this way. Transition of care: patient was not received from another setting of care. Onset of symptoms was November 06, 2018. Risk Assessment: Do you want to hurt yourself or someone else? Patient reports desire/thoughts of hurting themselves or someone else. Provider notified. Initial Sepsis Screen: Does the patient meet any 2 criteria? No. Patient's initial sepsis screen is negative. Does the patient have a suspected source of infection? No. Patient's initial sepsis screen is negative. Care prior to arrival: None. 06:35 Method Of Arrival: Ambulatory 06:35 Acuity: SUSIE 2 fc Historical: - Allergies: 07:06 No Known Allergies; fc - Home Meds: 07:06 sertraline 50 mg oral tab 1 tab once daily [Active]; hydroxyzine HCl 25 mg Oral tab 1-2 fc tabs bid [Active]; - PMHx: 07:06 Cellulitis; Panic Attacks; punctured disc; ruptured disk; Anxiety; Depression; fc - PSHx: 07:06 None; fc - Immunization history:: Last tetanus immunization: unknown. - Social history:: Smoking status: Patient/guardian denies using tobacco, Patient uses alcohol, occasionally. Patient/guardian denies using street drugs. - Ebola Screening: : Patient negative for fever greater than or equal to 101.5 degrees Fahrenheit, and additional compatible Ebola Virus Disease symptoms Patient denies exposure to infectious person Patient denies travel to an Ebola-affected area in the 21 days before illness onset. Screenin:04 Abuse screen: Denies threats or abuse. Nutritional screening: No deficits noted. Tuberculosis screening: No symptoms or risk factors identified. Fall Risk None identified. Assessment: 07:00 General: Appears in no apparent distress. uncomfortable, Behavior is calm, cooperative, jl7 Reports 2 days taking a whole dose of Zoloft and feeling very down and like he would be better off not here but does not want to hurt himself. Pt's family at bedside. Pain: Denies pain. Neuro: Level of Consciousness is awake, alert, obeys commands, Oriented to person, place, time, situation. Cardiovascular: Patient's skin is warm and dry. Respiratory: Airway is patent Respiratory effort is even, unlabored, Respiratory pattern is regular, symmetrical. GI: No signs and/or symptoms were reported involving the gastrointestinal system. : No signs and/or symptoms were reported regarding the genitourinary system. EENT: No signs and/or symptoms were reported regarding the EENT system. Derm: Skin is pink, warm \T\ dry. 07:10 Reassessment: ERP at bedside. jl7 07:40 Reassessment: Patient appears in no apparent distress at this time. Patient and/or rb1 family updated on plan of care and expected duration. Pain level reassessed. Patient is alert, oriented x 3, equal unlabored respirations, skin warm/dry/pink. Family at bedside. Patient denies pain at this time. Psych: 07:06 Subjective: Patient's mood is sad, Delusions are denied, Hallucinations are denied fc Having thoughts of suicide. Denies suicidal plan. Objective: Patient is cooperative, using poor eye contact, Speech is normal, Affect is flat. Interventions: Removed personal items and placed in bag. Patient placed in hospital gown. Searched person for dangerous items. Urine collected and sent for urine drug test. Suicide Risk Assessment: Sad Person Scale: Sex of patient: Male: Score 1 point. Age of patient: Score 1 point if patient 15-34. Depression: Score 1 point if signs of depression are present. Previous Attempt: Score 0 point if patient has not previously attempted suicide. Substance Abuse: Score 0 point if patient does not abuse alcohol or drugs. Rational Thinking: Score 0 point if patient has rational thinking. Social Support: Score 0 if social support is present/available. Organized Plan: Score 0 if patient did not have an organized plan in place. Relationship: Score 1 point if patient is , , , or for a single male Chronic Sickness: Score 0 point if patient does not have a chronic illness, debilitating, or severe disorder. TOTAL POINTS: If total points are 3-4, proposed clinical action is close follow-up/consider hospitalization. Safety Checks: Personal items have been removed. Door is open. Visitors are present. Pt denies substance abuse. Vital Signs: 06:35 BP 136 / 87; Pulse 87; Resp 18; Temp 97.8(O); Pulse Ox 99% on R/A; Weight 106.59 kg fc (R); Height 5 ft. 11 in. (180.34 cm) (R); Pain 0/10; 07:35 BP 118 / 83; Pulse 75; Resp 17; Temp 97.9(O); Pulse Ox 97% on R/A; Pain 0/10; rb1 06:35 Body Mass Index 32.78 (106.59 kg, 180.34 cm) ED Course: 06:34 Patient arrived in ED. cl3 06:35 Arm band placed on Patient placed in an exam room, on a stretcher. fc 06:41 Mike Cabrales PA is PHCP. jr8 06:41 Chemo Cain MD is Attending Physician. jr8 07:00 Safety checks: Items removed: yes. Door open/sign placed on door: yes. Family/friend jb1 present: yes. Family/friends encouraged to stay with patient. Sitter present: Yes. 07:03 Triage completed. fc 07:04 Patient has correct armband on for positive identification. Bed in low position. Call light in reach. 07:04 No provider procedures requiring assistance completed. fc 07:05 Darian Inman RN is Primary Nurse. jl7 07:41 Patient did not have IV access during this emergency room visit. rb1 Administered Medications: 07:30 Drug: Ativan 1 mg Route: PO; rb1 07:40 Follow up: Response: No adverse reaction rb1 Outcome: 07:28 Discharge ordered by . jr8 07:41 Discharged to home ambulatory, with family. rb1 07:41 Condition: stable 07:41 Discharge instructions given to patient, Instructed on discharge instructions, follow up and referral plans. Demonstrated understanding of instructions, follow-up care, Prescriptions given X none 07:42 Patient left the ED. rb1 Signatures: Julio Rene1 Irma Nolasco RN RN fc Mike Cabrales PA PA jr8 Miladys Odonnell, RN RN rb1 Darian Inman RN RN jl7 Nestor Meraz cl3
--- NOTE | 2018-11-06 07:29 | EDPHYS ---
Physician Documentation [facility] Name: Elias Billy Age: 28 yrs Sex: Male : 1990 Arrival Date: 11/06/2018 Time: 06:34 Bed 17 Private MD: ED Physician Chemo Cain HPI: 11/06 07:41 This 28 yrs old Male presents to ER via Ambulatory with complaints of Suicidal jr8 Ideation. 07:41 Onset: The symptoms/episode began/occurred acutely, yesterday. Associated signs and jr8 symptoms: The patient has no apparent associated signs or symptoms. Severity of symptoms: At their worst the symptoms were moderate. The patient has not experienced similar symptoms in the past. The patient has been recently seen by a physician:. Patient stated that he has been suffering from depression and anxiety from recent break up with fiance. Stated that he was started on zoloft and hydroxazine. Had been doing well until last two days when he increased his zoloft dose. Started to have racing thoughts and thoughts of suicide. Stated that he does not want to kill himself. Called family for help and was brought to ED. Historical: - Allergies: 07:06 No Known Allergies; fc - Home Meds: 07:06 sertraline 50 mg oral tab 1 tab once daily [Active]; hydroxyzine HCl 25 mg Oral tab 1-2 fc tabs bid [Active]; - PMHx: 07:06 Cellulitis; Panic Attacks; punctured disc; ruptured disk; Anxiety; Depression; fc - PSHx: 07:06 None; fc - Immunization history:: Last tetanus immunization: unknown. - Social history:: Smoking status: Patient/guardian denies using tobacco, Patient uses alcohol, occasionally. Patient/guardian denies using street drugs. - Ebola Screening: : Patient negative for fever greater than or equal to 101.5 degrees Fahrenheit, and additional compatible Ebola Virus Disease symptoms Patient denies exposure to infectious person Patient denies travel to an Ebola-affected area in the 21 days before illness onset. ROS: 07:41 Eyes: Negative for injury, pain, redness, and discharge, ENT: Negative for injury, jr8 pain, and discharge, Neck: Negative for injury, pain, and swelling, Cardiovascular: Negative for chest pain, palpitations, and edema, Respiratory: Negative for shortness of breath, cough, wheezing, and pleuritic chest pain, Abdomen/GI: Negative for abdominal pain, nausea, vomiting, diarrhea, and constipation, Back: Negative for injury and pain, MS/Extremity: Negative for injury and deformity, Skin: Negative for injury, rash, and discoloration, Neuro: Negative for headache, weakness, numbness, tingling, and seizure. 07:41 Psych: Positive for anxiety, depression, suicidal ideation. Exam: 07:41 Eyes: Pupils equal round and reactive to light, extra-ocular motions intact. Lids and jr8 lashes normal. Conjunctiva and sclera are non-icteric and not injected. Cornea within normal limits. Periorbital areas with no swelling, redness, or edema. ENT: Nares patent. No nasal discharge, no septal abnormalities noted. Tympanic membranes are normal and external auditory canals are clear. Oropharynx with no redness, swelling, or masses, exudates, or evidence of obstruction, uvula midline. Mucous membranes moist. Neck: Trachea midline, no thyromegaly or masses palpated, and no cervical lymphadenopathy. Supple, full range of motion without nuchal rigidity, or vertebral point tenderness. No Meningismus. Cardiovascular: Regular rate and rhythm with a normal S1 and S2. No gallops, murmurs, or rubs. Normal PMI, no JVD. No pulse deficits. Respiratory: Lungs have equal breath sounds bilaterally, clear to auscultation and percussion. No rales, rhonchi or wheezes noted. No increased work of breathing, no retractions or nasal flaring. Abdomen/GI: Soft, non-tender, with normal bowel sounds. No distension or tympany. No guarding or rebound. No evidence of tenderness throughout. Back: No spinal tenderness. No costovertebral tenderness. Full range of motion. Skin: Warm, dry with normal turgor. Normal color with no rashes, no lesions, and no evidence of cellulitis. MS/ Extremity: Pulses equal, no cyanosis. Neurovascular intact. Full, normal range of motion. Neuro: Awake and alert, GCS 15, oriented to person, place, time, and situation. Cranial nerves II-XII grossly intact. Motor strength 5/5 in all extremities. Sensory grossly intact. Cerebellar exam normal. Normal gait. 07:41 Psych: Behavior/mood is pleasant, cooperative, Affect is calm, Oriented to person, place, time, Patient has no thoughts/intents to harm self or others. Judgement / Insight is normal. Memory is normal. Delusions/hallucinations are not present. Vital Signs: 06:35 BP 136 / 87; Pulse 87; Resp 18; Temp 97.8(O); Pulse Ox 99% on R/A; Weight 106.59 kg fc (R); Height 5 ft. 11 in. (180.34 cm) (R); Pain 0/10; 07:35 BP 118 / 83; Pulse 75; Resp 17; Temp 97.9(O); Pulse Ox 97% on R/A; Pain 0/10; rb1 06:35 Body Mass Index 32.78 (106.59 kg, 180.34 cm) MDM: 06:41 Patient medically screened. jr8 07:27 Data reviewed: vital signs, nurses notes, and as a result, I will discharge patient. jr8 Data interpreted: Pulse oximetry: on room air is 99 %. Interpretation: normal. Counseling: I had a detailed discussion with the patient and/or guardian regarding: the historical points, exam findings, and any diagnostic results supporting the discharge/admit diagnosis, the need for outpatient follow up, a psychiatrist, to return to the emergency department if symptoms worsen or persist or if there are any questions or concerns that arise at home. 11/06 06:55 Order name: Urine Dipstick--Ancillary (enter results) mw2 Administered Medications: 07:30 Drug: Ativan 1 mg Route: PO; rb1 07:40 Follow up: Response: No adverse reaction rb1 Disposition: 11/06/18 07:28 Discharged to Home. Impression: Adverse effect of other antidepressants. - Condition is Stable. - Discharge Instructions: Generalized Anxiety Disorder, Persistent Depressive Disorder. - Medication Reconciliation Form, Thank You Letter, Antibiotic Education, Prescription Opioid Use, Work release form, Family Work Release form. - Follow up: Private Physician; When: 2 - 3 days; Reason: Recheck today's complaints, Continuance of care, Re-evaluation by your physician. - Problem is new. - Symptoms have improved. Signatures: Dispatcher [employer] EDKY Irma Nolasco RN RN Mike Cabrales PA PA jr8 Odonnell, Miladys, RN RN rb1 Corrections: (The following items were deleted from the chart) 07:42 07:28 11/06/2018 07:28 Discharged to Home. Impression: Adverse effect of other rb1 antidepressants. Condition is Stable. Forms are Medication Reconciliation Form, Thank You Letter, Antibiotic Education, Prescription Opioid Use. Follow up: Private Physician; When: 2 - 3 days; Reason: Recheck today's complaints, Continuance of care, Re-evaluation by your physician. Problem is new. Symptoms have improved. jr8
[2018-11-06 07:42] LABS: Urine Blood 1+ (NEG); Urine Glucose NEGATIVE (NEG); Urine Protein 1+ (NEG); Urine Specific Gravity 1.025 (1.005-1.030); Urine pH 6.5 (5.0-7.0)
== END 2018-11-06 07:42 | disposition home or self-care (01) ==
LOC: ER 06:33
DX: T43.295A Adverse effect of other antidepressants, initial encounter (principal); R45.851 Suicidal ideations; F41.9 Anxiety disorder, unspecified; F32.9 Major depressive disorder, single episode, unspecified
CPT/HCPCS: 81003; 99284

== ENCOUNTER 2018-11-10 10:18 | Emergency (ER) | payer SELFPAY ==
--- NOTE | 2018-11-10 10:55 | ER ---
Nurse's Notes [facility] Name: Elias Billy Age: 28 yrs Sex: Male : 1990 Arrival Date: 11/10/2018 Time: 10:23 Bed 16 Private MD: None, None Diagnosis: Radiculopathy, lumbar region Presentation: 11/10 10:49 Presenting complaint: Patient states: LEFT FLANK/BACK PAIN. Transition of care: patient bp was not received from another setting of care. Onset of symptoms is unknown. Risk Assessment: Do you want to hurt yourself or someone else? Patient reports no desire to harm self or others. Initial Sepsis Screen: Does the patient meet any 2 criteria? HR > 90 bpm. Does the patient have a suspected source of infection? No. Patient's initial sepsis screen is negative. Care prior to arrival: None. 10:49 Method Of Arrival: Ambulatory bp 10:49 Acuity: SUSIE 5 bp Triage Assessment: 10:51 General: Appears in no apparent distress. comfortable, Behavior is cooperative, bp appropriate for age, anxious. Pain: Complains of pain in left flank. EENT: No deficits noted. Neuro: No deficits noted. Cardiovascular: No deficits noted. Respiratory: No deficits noted. GI: No signs and/or symptoms were reported involving the gastrointestinal system. : No signs and/or symptoms were reported regarding the genitourinary system. Derm: No signs and/or symptoms reported regarding the dermatologic system. Musculoskeletal: Circulation, motion, and sensation intact. Range of motion: intact in all extremities. Historical: - Allergies: 10:51 No Known Allergies; bp - Home Meds: 10:51 hydroxyzine HCl 25 mg Oral tab 1-2 tabs bid [Active]; sertraline 50 mg Oral tab 1 tab bp once daily [Active]; - PMHx: 10:51 Anxiety; Depression; Cellulitis; Panic Attacks; punctured disc; ruptured disk; bp - Immunization history:: Adult Immunizations up to date. - Social history:: Smoking status: Patient/guardian denies using tobacco. - Ebola Screening: : No symptoms or risks identified at this time. Screenin:52 Abuse screen: Denies threats or abuse. Denies injuries from another. Nutritional bp screening: No deficits noted. Tuberculosis screening: No symptoms or risk factors identified. Fall Risk None identified. Assessment: 10:52 General: SEE TRIAGE NOTE. Neuro: Level of Consciousness is awake, alert, obeys bp commands, Oriented to person, place, time, situation, Appropriate for age. 11:12 Reassessment: PT D/C HOME AMBULATORY WITH FRIEND, DX WITH LUMBOSACRAL RADICULOPATHY. bp Vital Signs: 10:49 BP 112 / 74; Pulse 98; Resp 16; Temp 98; Pulse Ox 98% ; Weight 106.59 kg; Height 5 ft. bp 11 in. (180.34 cm); 10:49 Body Mass Index 32.78 (106.59 kg, 180.34 cm) bp ED Course: 10:23 Patient arrived in ED. mr 10:23 None, None is Private Physician. mr 10:26 Santi Velasco, RN is Primary Nurse. bp 10:31 Chemo Cain MD is Attending Physician. gs 10:50 Triage completed. bp 10:51 Arm band placed on. bp 10:52 Patient has correct armband on for positive identification. Bed in low position. Call bp light in reach. Side rails up X2. 11:13 No provider procedures requiring assistance completed. Patient did not have IV access bp during this emergency room visit. Administered Medications: 10:55 Drug: [place] 10 mg-325 mg 1 tabs Route: PO; bp 11:14 Follow up: Response: No adverse reaction; Pain is decreased bp 10:55 Drug: predniSONE 40 mg Route: PO; bp 11:14 Follow up: Response: Pain is decreased bp Outcome: 10:54 Discharge ordered by . 11:13 Discharged to home ambulatory, with friend. bp 11:13 Condition: stable 11:13 Discharge instructions given to patient, Instructed on discharge instructions, follow up and referral plans. medication usage, Demonstrated understanding of instructions, follow-up care, medications, Prescriptions given X 2. 11:15 Patient left the ED. bp Signatures: Maddy Mcnamara mr Chemo Cain MD MD Santi Velasco, RN RN bp
--- NOTE | 2018-11-10 10:56 | EDPHYS ---
Physician Documentation [facility] Name: Elias Billy Age: 28 yrs Sex: Male : 1990 Arrival Date: 11/10/2018 Time: 10:23 Bed 16 Private MD: None, None ED Physician Chemo Cain HPI: 11/10 10:50 This 28 yrs old Male presents to ER via Ambulatory with complaints of Back gs Pain. 10:50 The patient presents with pain that is acute. The symptoms are located in the low back. gs Onset: The symptoms/episode began/occurred acutely, yesterday. The pain does not radiate. Associated signs and symptoms: Pertinent negatives: incontinence, numbness, urinary retention. The problem was sustained from twisting. Modifying factors: The patient symptoms are alleviated by nothing, the patient symptoms are aggravated by bending, movement. Severity of symptoms: At their worst the symptoms were severe, in the emergency department the symptoms are unchanged. Historical: - Allergies: 10:51 No Known Allergies; bp - Home Meds: 10:51 hydroxyzine HCl 25 mg Oral tab 1-2 tabs bid [Active]; sertraline 50 mg Oral tab 1 tab bp once daily [Active]; - PMHx: 10:51 Anxiety; Depression; Cellulitis; Panic Attacks; punctured disc; ruptured disk; bp - Immunization history:: Adult Immunizations up to date. - Social history:: Smoking status: Patient/guardian denies using tobacco. - Ebola Screening: : No symptoms or risks identified at this time. ROS: 10:50 All other systems are negative. gs Exam: 10:50 Head/Face: Normocephalic, atraumatic. gs 10:50 Eyes: Pupils equal round and reactive to light, extra-ocular motions intact. Lids and lashes normal. Conjunctiva and sclera are non-icteric and not injected. Cornea within normal limits. Periorbital areas with no swelling, redness, or edema. ENT: Nares patent. No nasal discharge, no septal abnormalities noted. Tympanic membranes are normal and external auditory canals are clear. Oropharynx with no redness, swelling, or masses, exudates, or evidence of obstruction, uvula midline. Mucous membranes moist. Neck: Trachea midline, no thyromegaly or masses palpated, and no cervical lymphadenopathy. Supple, full range of motion without nuchal rigidity, or vertebral point tenderness. No Meningismus. Chest/axilla: Normal chest wall appearance and motion. Nontender with no deformity. No lesions are appreciated. Cardiovascular: Regular rate and rhythm with a normal S1 and S2. No gallops, murmurs, or rubs. Normal PMI, no JVD. No pulse deficits. Respiratory: Lungs have equal breath sounds bilaterally, clear to auscultation and percussion. No rales, rhonchi or wheezes noted. No increased work of breathing, no retractions or nasal flaring. Abdomen/GI: Soft, non-tender, with normal bowel sounds. No distension or tympany. No guarding or rebound. No evidence of tenderness throughout. Skin: Warm, dry with normal turgor. Normal color with no rashes, no lesions, and no evidence of cellulitis. Neuro: Awake and alert, GCS 15, oriented to person, place, time, and situation. Cranial nerves II-XII grossly intact. Motor strength 5/5 in all extremities. Sensory grossly intact. Cerebellar exam normal. Normal gait. 10:50 Constitutional: The patient appears alert, awake. 10:50 Constitutional: The patient appears uncomfortable. 10:50 Back: Straight leg raises: left lower extremity illicits pain, at 30 degrees. 10:50 Musculoskeletal/extremity: Circulation is intact in all extremities. Edema, is not appreciated. 10:50 Neuro: Motor: strength is normal, except left ehl weak, Sensation: is normal, pin prick testing is normal, Deep tendon reflexes are normal. Vital Signs: 10:49 BP 112 / 74; Pulse 98; Resp 16; Temp 98; Pulse Ox 98% ; Weight 106.59 kg; Height 5 ft. bp 11 in. (180.34 cm); 10:49 Body Mass Index 32.78 (106.59 kg, 180.34 cm) bp MDM: 10:48 Patient medically screened. gs 10:50 Differential diagnosis: chronic back pain, Ligament Injury ruptured disc. Data gs reviewed: vital signs, nurses notes. Counseling: I had a detailed discussion with the patient and/or guardian regarding: the historical points, exam findings, and any diagnostic results supporting the discharge/admit diagnosis, the need for outpatient follow up. Response to treatment: the patient's symptoms have mildly improved after treatment, and as a result, I will discharge patient. Administered Medications: 10:55 Drug: [place] 10 mg-325 mg 1 tabs Route: PO; bp 11:14 Follow up: Response: No adverse reaction; Pain is decreased bp 10:55 Drug: predniSONE 40 mg Route: PO; bp 11:14 Follow up: Response: Pain is decreased bp Disposition: 11/10/18 10:54 Discharged to Home. Impression: Radiculopathy, lumbar region. - Condition is Stable. - Discharge Instructions: Lumbosacral Radiculopathy. - Prescriptions for Prednisone 20 mg Oral Tablet - take 1 tablet by ORAL route once daily for 5 days; 5 tablet. Tylenol- Codeine #4 300-60 mg Oral Tablet - take 1 tablet by ORAL route every 6 hours As needed; 10 tablet. - Medication Reconciliation Form, Thank You Letter, Antibiotic Education, Prescription Opioid Use, Work release form form. - Follow up: Private Physician; When: 2 - 3 days; Reason: Re-evaluation by your physician. Signatures: Chemo Cain MD MD Santi Velasco RN RN bp Corrections: (The following items were deleted from the chart) 11:15 10:54 11/10/2018 10:54 Discharged to Home. Impression: Radiculopathy, lumbar region. bp Condition is Stable. Forms are Medication Reconciliation Form, Thank You Letter, Antibiotic Education, Prescription Opioid Use. Follow up: Private Physician; When: 2 - 3 days; Reason: Re-evaluation by your physician. gs
[2018-11-10] MEDS ORDERED: predniSONE 20 MG TAB ONE (10:59)
[2018-11-10] MEDS ORDERED: HYDROCODONE/APAP 10/325 TAB ONE (10:59)
== END 2018-11-10 11:15 | disposition home or self-care (01) ==
LOC: ER 10:18
DX: M54.16 Radiculopathy, lumbar region (principal); F41.9 Anxiety disorder, unspecified; F32.9 Major depressive disorder, single episode, unspecified
CPT/HCPCS: 99283; J7512

== ENCOUNTER 2018-11-22 22:11 | Emergency (ER) | payer SELFPAY ==
[2018-11-22] MEDS ORDERED: MEPERIDINE HCL 25 MG/0.5 ML ONE (23:13)
[2018-11-22] MEDS ORDERED: ONDANSETRON 4 MG/2 ML VIAL ONE (23:13)
[2018-11-22] MEDS ORDERED: NA CHLORIDE 0.9% 1,000 ML ONE (23:13)
[2018-11-22 23:33] LABS: Absolute Lymphocytes (CBC) 0.9 K/uL (0.7-4.9); Basophils % 0.1 % (0-1.3); Hematocrit 48.9 % (39.6-49.0); Lymphocytes % 4.9 % (15.3-44.8); MPV 9.5 fL (7.6-11.3)
[2018-11-22 23:44] LABS: ALT/SGPT 24 U/L (12-78); AST/SGOT 14 U/L (15-37); Albumin 3.8 g/dL (3.4-5.0); Alkaline Phosphatase 78 U/L (45-117); BUN Blood Urea Nitrogen 14 mg/dL (7-18); Bicarbonate 24 mmol/L (21-32); Bilirubin Direct 0.1 mg/dL (0-0.2); Bilirubin Total 0.5 mg/dL (0.2-1.0); Glucose Level 111 mg/dL (74-106); Lipase 212 U/L (73-393); Potassium 3.9 mmol/L (3.5-5.1); Protein, Total 7.6 g/dL (6.4-8.2); Sodium Level 141 mmol/L (136-145)
[2018-11-23 00:13] LABS: Blood Morphology Comment NOT SEEN (NOT SEEN); Platelet Estimate ADEQ
--- NOTE | 2018-11-23 02:19 | ER ---
Nurse's Notes [facility] Name: Elias Billy Age: 28 yrs Sex: Male : 1990 Arrival Date: 11/22/2018 Time: 22:13 Bed 6 Private MD: Diagnosis: Dehydration;Enteritis Presentation: 11/22 22:42 Presenting complaint: Patient states: he inhaled bleach at approx 1900 now has SOB, bb lungs hurt, he is having upper abd pain and has had 15 episodes of diarrhea in the last couple of hours. Transition of care: patient was not received from another setting of care. Onset of symptoms was November 22, 2018. Risk Assessment: Do you want to hurt yourself or someone else? Patient reports no desire to harm self or others. Initial Sepsis Screen: Does the patient meet any 2 criteria? No. Patient's initial sepsis screen is negative. Does the patient have a suspected source of infection? No. Patient's initial sepsis screen is negative. Care prior to arrival: None. 22:42 Method Of Arrival: Ambulatory bb 22:42 Acuity: SUSIE 3 bb Triage Assessment: 22:45 General: Appears uncomfortable, Behavior is cooperative, appropriate for age, anxious. fc Pain: Complains of pain in right upper quadrant and left upper quadrant Pain currently is 10 out of 10 on a pain scale. Quality of pain is described as dull, pressure, Pain began 4 hours ago. Is continuous. EENT: No deficits noted. Neuro: Level of Consciousness is awake, alert, obeys commands, Oriented to person, place, time, situation, Appropriate for age. Cardiovascular: No deficits noted. Respiratory: Reports shortness of breath Airway is patent Respiratory effort is even, unlabored, Breath sounds are clear bilaterally. Onset: The symptoms/episode began/occurred gradually, the patient has mild shortness of breath. GI: Abdomen is round Bowel sounds present X 4 quads. Abd is soft X 4 quads Abdomen is tender to palpation in right upper quadrant and left upper quadrant Reports upper abdominal pain, diarrhea, nausea. : No deficits noted. Derm: Skin is pink, warm \T\ dry. Musculoskeletal: Circulation, motion, and sensation intact. Capillary refill < 3 seconds, Range of motion: intact in all extremities. Historical: - Allergies: 22:46 No Known Allergies; bb - Home Meds: 22:46 None [Active]; bb - PMHx: 22:46 Anxiety; Cellulitis; Depression; Panic Attacks; punctured disc; ruptured disk; bb - PSHx: 22:46 None; bb - Immunization history:: Adult Immunizations up to date. - Social history:: Smoking status: Patient/guardian denies using tobacco, Patient uses alcohol, occasionally. Patient/guardian denies using IV drugs. - Ebola Screening: : No symptoms or risks identified at this time. - Family history:: not pertinent. - Hospitalizations: : No recent hospitalization is reported. Screenin:57 Abuse screen: Denies threats or abuse. Nutritional screening: No deficits noted. fc Tuberculosis screening: No symptoms or risk factors identified. Fall Risk None identified. Assessment: 22:56 Reassessment: No changes from previously documented assessment. Patient and/or family fc updated on plan of care and expected duration. Pain level reassessed. Patient is alert, oriented x 3, equal unlabored respirations, skin warm/dry/pink. see triage assessment. 23:20 Reassessment: No changes from previously documented assessment. Patient and/or family fc updated on plan of care and expected duration. Pain level reassessed. Pt given medication as ordered. But prior to even getting medication pt resp rate down and stated that he was feeling a bit better. 11/23 00:19 Reassessment: Pt gone to CT via stretcher. 01:30 Reassessment: Patient and/or family updated on plan of care and expected duration. Pain ea level reassessed. Patient is alert, oriented x 3, equal unlabored respirations, skin warm/dry/pink. Awaiting on CT results. 02:47 Reassessment: Patient and/or family updated on plan of care and expected duration. Pain ea level reassessed. Patient is alert, oriented x 3, equal unlabored respirations, skin warm/dry/pink. Discharge instruction given to patient, verbalized the understanding of instruction. Pt left ED via wheelchair accompanied by family, pt tolerating well. Patient states feeling better. Vital Signs: 11/22 22:46 BP 139 / 92; Pulse 96; Resp 22; Temp 97.7(O); Pulse Ox 100% on R/A; Weight 106.59 kg bb (R); Height 5 ft. 11 in. (180.34 cm) (R); Pain 10/10; 23:15 BP 119 / 79; Pulse 94; Resp 18; Pulse Ox 98% on R/A; Pain 8/10; fc 11/23 00:15 BP 113 / 79; Pulse 91; Resp 20; Pulse Ox 95% on R/A; Pain 4/10; fc 00:43 BP 127 / 82; Pulse 89; Resp 21; Pulse Ox 99% on R/A; rv 02:30 BP 123 / 77; Pulse 84; Resp 18; Pulse Ox 98% on R/A; ea 02:30 Temp 97.2; ea 11/22 22:46 Body Mass Index 32.78 (106.59 kg, 180.34 cm) bb ED Course: 11/22 22:13 Patient arrived in ED. mr 22:40 Joon Frazier MD is Attending Physician. rn 22:44 Triage completed. bb 22:46 Arm band placed on Patient placed in an exam room, on a stretcher, on pulse oximetry. bb 22:53 Radiology exam delayed due to lab results not completed at this time. (BUN/Creatinine). mw3 22:57 Patient has correct armband on for positive identification. Bed in low position. Call fc light in reach. Side rails up X 1. cosmetics supervisor on. Pulse ox on. NIBP on. 22:57 No provider procedures requiring assistance completed. 23:06 Initial lab(s) drawn, by me, sent to lab. Inserted saline lock: 20 gauge in left lt1 antecubital area, using aseptic technique. 23:09 Radiology exam delayed due to lab results not completed at this time. (BUN/Creatinine). mw3 11/23 00:[address] via wheelchair. nj 00:22 Ramy Steven, ANANT is Primary Nurse. rv 00:34 CT Abd/Pelvis - IV Contrast Only Sent. rv 00:39 CT Abd/Pelvis - IV Contrast Only In Process Unspecified. EDMS 02:35 IV discontinued, intact, bleeding controlled, No redness/swelling at site. Pressure ea dressing applied. Administered Medications: 11/22 23:13 Drug: NS 0.9% 1000 ml Route: IV; Rate: 1000 ml; Site: left antecubital; 11/23 00:18 Follow up: Response: No adverse reaction; No change in condition; IV Status: Completed infusion 11/22 23:15 Drug: Zofran 4 mg Route: IVP; Site: left antecubital; 11/23 00:18 Follow up: Response: No adverse reaction; Nausea is decreased 11/22 23:18 Drug: Demerol 25 mg {Note: RASS 0.} Route: IVP; Site: left antecubital; 11/23 00:18 Follow up: Response: No adverse reaction; Pain is decreased fc 02:29 Drug: Cipro 500 mg Route: PO; ea 02:45 Follow up: Response: No adverse reaction ea 02:29 Drug: Flagyl 500 mg Route: PO; ea 02:46 Follow up: Response: No adverse reaction ea 02:29 Drug: Demerol 25 mg Route: IVP; Site: left antecubital; ea 02:46 Follow up: Response: No adverse reaction; Pain is decreased ea Outcome: 02:18 Discharge ordered by MD. rn 02:48 Discharged to home via wheelchair, with family. ea 02:48 Condition: stable 02:48 Discharge instructions given to patient, Instructed on discharge instructions, follow up and referral plans. medication usage, Demonstrated understanding of instructions, follow-up care, medications, Prescriptions given X 4. 02:50 Patient left the ED. ea Signatures: Dispatcher [employer] ELHAMDC Maddy McnamaraIrma RN RN Louann Maciel RN RN bb Nieto, Roman, MD MD rn Jordan, Nathan nj Antunez, Elena, RN RN ea Willis, Michelle mw3 Ramy Steven RN RN rv Tran, Leah lt1 Corrections: (The following items were deleted from the chart) 11/22 22:49 22:42 Presenting complaint: Patient states: he inhaled bleach at approx 1900 now has bb SOB, lungs hurt, he is having upper abd pain bb
--- NOTE | 2018-11-23 02:20 | EDPHYS ---
Physician Documentation [facility] Name: Elias Billy Age: 28 yrs Sex: Male : 1990 Arrival Date: 11/22/2018 Time: 22:13 Bed 6 Private MD: ED Physician Joon Frazier HPI: 11/22 23:35 This 28 yrs old Male presents to ER via Ambulatory with complaints of rn Abdominal Pain, Nausea, Diarrhea. 23:35 The patient presents to the emergency department with nausea, vomiting, diarrhea, rn abdominal pain. Onset: The symptoms/episode began/occurred today. Possible causes: unknown. The symptoms are aggravated by nothing. The symptoms are alleviated by nothing. Severity of symptoms: At their worst the symptoms were moderate in the emergency department the symptoms are unchanged. The patient has not experienced similar symptoms in the past. The patient has not recently seen a physician. Historical: - Allergies: 22:46 No Known Allergies; bb - Home Meds: 22:46 None [Active]; bb - PMHx: 22:46 Anxiety; Cellulitis; Depression; Panic Attacks; punctured disc; ruptured disk; bb - PSHx: 22:46 None; bb - Immunization history:: Adult Immunizations up to date. - Social history:: Smoking status: Patient/guardian denies using tobacco, Patient uses alcohol, occasionally. Patient/guardian denies using IV drugs. - Ebola Screening: : No symptoms or risks identified at this time. - Family history:: not pertinent. - Hospitalizations: : No recent hospitalization is reported. ROS: 23:35 Constitutional: Negative for fever, chills, and weight loss, Eyes: Negative for injury, rn pain, redness, and discharge, Cardiovascular: Negative for chest pain, palpitations, and edema, Respiratory: Negative for shortness of breath, cough, wheezing, and pleuritic chest pain, Abdomen/GI: Negative for constipation MS/Extremity: Negative for injury and deformity, Skin: Negative for injury, rash, and discoloration, Neuro: Negative for headache, numbness, tingling, and seizure. Exam: 23:35 Constitutional: This is a well developed, well nourished patient who is awake, alert, rn and in no acute distress. Head/Face: Normocephalic, atraumatic. Eyes: Pupils equal round and reactive to light, extra-ocular motions intact. Lids and lashes normal. Conjunctiva and sclera are non-icteric and not injected. Cornea within normal limits. Periorbital areas with no swelling, redness, or edema. ENT: dry MM Cardiovascular: Regular rate and rhythm with a normal S1 and S2. No gallops, murmurs, or rubs. Normal PMI, no JVD. No pulse deficits. Respiratory: Lungs have equal breath sounds bilaterally, clear to auscultation and percussion. No rales, rhonchi or wheezes noted. No increased work of breathing, no retractions or nasal flaring. Abdomen/GI: soft, mild gloria-umbilical tenderness, no rebound MS/ Extremity: Pulses equal, no cyanosis. Neurovascular intact. Full, normal range of motion. Equal circumference. Neuro: Awake and alert, GCS 15, oriented to person, place, time, and situation. Cranial nerves II-XII grossly intact. Motor strength 5/5 in all extremities. Sensory grossly intact. Cerebellar exam normal. Vital Signs: 22:46 BP 139 / 92; Pulse 96; Resp 22; Temp 97.7(O); Pulse Ox 100% on R/A; Weight 106.59 kg bb (R); Height 5 ft. 11 in. (180.34 cm) (R); Pain 10/10; 23:15 BP 119 / 79; Pulse 94; Resp 18; Pulse Ox 98% on R/A; Pain 8/10; fc 11/23 00:15 BP 113 / 79; Pulse 91; Resp 20; Pulse Ox 95% on R/A; Pain 4/10; fc 00:43 BP 127 / 82; Pulse 89; Resp 21; Pulse Ox 99% on R/A; rv 02:30 BP 123 / 77; Pulse 84; Resp 18; Pulse Ox 98% on R/A; ea 02:30 Temp 97.2; ea 11/22 22:46 Body Mass Index 32.78 (106.59 kg, 180.34 cm) bb MDM: 11/22 22:40 Patient medically screened. rn 11/23 02:17 ED course: Pt improved, ambulatory, requests more pain meds, states has a ride home. CT rn no acute findings, most likely enteritis. Will dc home with cipro/flagyl and return precautions given high WBC and left shift. . 11/22 22:48 Order name: Creatinine for Radiology; Complete Time: 00:14 rn 11/22 22:48 Order name: Basic Metabolic Panel; Complete Time: 00:14 rn 11/22 22:48 Order name: CBC with Diff; Complete Time: 00:27 rn 11/22 22:48 Order name: Hepatic Function; Complete Time: 00:14 rn 11/22 22:48 Order name: Lipase; Complete Time: 00:14 rn 11/22 23:40 Order name: Manual Differential; Complete Time: 00:27 EDMS 11/22 22:48 Order name: IV Saline Lock; Complete Time: 23:06 rn 11/22 22:48 Order name: CT Abd/Pelvis - IV Contrast Only rn 11/22 22:48 Order name: Labs collected and sent; Complete Time: 23:06 rn Administered Medications: 11/22 23:13 Drug: NS 0.9% 1000 ml Route: IV; Rate: 1000 ml; Site: left antecubital; 11/23 00:18 Follow up: Response: No adverse reaction; No change in condition; IV Status: Completed infusion 11/22 23:15 Drug: Zofran 4 mg Route: IVP; Site: left antecubital; 11/23 00:18 Follow up: Response: No adverse reaction; Nausea is decreased 11/22 23:18 Drug: Demerol 25 mg {Note: RASS 0.} Route: IVP; Site: left antecubital; 11/23 00:18 Follow up: Response: No adverse reaction; Pain is decreased fc 02:29 Drug: Cipro 500 mg Route: PO; ea 02:45 Follow up: Response: No adverse reaction ea 02:29 Drug: Flagyl 500 mg Route: PO; ea 02:46 Follow up: Response: No adverse reaction ea 02:29 Drug: Demerol 25 mg Route: IVP; Site: left antecubital; ea 02:46 Follow up: Response: No adverse reaction; Pain is decreased ea Disposition: 11/23/18 02:18 Discharged to Home. Impression: Dehydration, Enteritis. - Condition is Stable. - Discharge Instructions: Dehydration, Adult, Colitis. - Prescriptions for Zofran ODT 4 mg Oral tablet,disintegrating - place 1 tablet by TRANSLINGUAL route every 8 hours As needed; 20 tablet. Flagyl 500 mg Oral Tablet - take 1 tablet by ORAL route every 8 hours for 10 days; 30 tablet. Tylenol- Codeine #3 300-30 mg Oral Tablet - take 1 tablet by ORAL route every 6 hours As needed; 20 tablet. Cipro 500 mg Oral Tablet - take 1 tablet by ORAL route every 12 hours for 10 days; 20 tablet. - Medication Reconciliation Form, Thank You Letter, Antibiotic Education, Prescription Opioid Use form. - Follow up: Private Physician; When: As needed; Reason: Recheck today's complaints, Re-evaluation by your physician. - Problem is new. - Symptoms have improved. Signatures: Dispatcher [employer] EDMS Irma Nolasco RN RN Louann Maciel RN RN bb Nieto, Roman, MD MD rn Antunez, Elena, RN RN ea Corrections: (The following items were deleted from the chart) 02:50 02:18 11/23/2018 02:18 Discharged to Home. Impression: Dehydration; Enteritis. ea Condition is Stable. Forms are Medication Reconciliation Form, Thank You Letter, Antibiotic Education, Prescription Opioid Use. Follow up: Private Physician; When: As needed; Reason: Recheck today's complaints, Re-evaluation by your physician. Problem is new. Symptoms have improved. rn
[2018-11-23] MEDS ORDERED: CIPROFLOXACIN HCL 500 MG TAB ONE (02:25)
[2018-11-23] MEDS ORDERED: metroNIDAZOLE 500 MG TABLET ONE (02:25)
[2018-11-23] MEDS ORDERED: MEPERIDINE HCL 25 MG/0.5 ML ONE (02:25)
--- NOTE | 2018-11-24 10:55 | RAD REPORT ---
EXAM DESCRIPTION: CT - Abdomen Pelvis W Contrast - 11/23/2018 6:42 am CLINICAL HISTORY: 28 years Male ABD PAIN COMPARISON: None TECHNIQUE: Images were obtained in axial, sagittal, and coronal planes. Intravenous contrast was adm inistered. Arterial and venous phase imaging was performed in the axial projection. This exam was performed according to our departmental dose-optimization program which includes use of Automated Exposure Control, adjustment of the mA and/or kV according to patient size and/or use of i terative reconstruction technique. FINDINGS: No abnormality involving the liver, franca, pancreas, gallbladder, or adrenal glands bilate rally. No obstructing renal calcifications bilaterally. No hydronephrosis bilaterally. Unremarkable bladder. Appendix within normal limits. No bowel obstruction, perforation, or inflammation. No abnormality abdominal aorta or portal vein. No adenopathy or abnormal fluid collections seen. Dependent atelectatic change lower lungs bilaterally. No acute osseous abnormality. IMPRESSION: No acute intra-abdominal abnormality. Electronically signed by: Nora Thurston MD 11/23/2018 12:58 AM CDT Due to temporary technical issues with the PACS/Fluency reporting system, reports are being signed by the in house radiologist as a courtesy to ensure prompt reporting. The interpreting radiologist is f ully responsible for the content of the report.
== END 2018-11-23 02:50 | disposition home or self-care (01) ==
LOC: ER 22:11
DX: K52.9 Noninfective gastroenteritis and colitis, unspecified (principal); E86.0 Dehydration
CPT/HCPCS: 36415; 74177; 80048; 80076; 83690; 85025; 96361; 96374; 96375; 99285; J2175; J2405; J7030; Q9967

== ENCOUNTER 2019-09-30 15:04 | Emergency (ER) | payer OTHER ==
[2019-09-30 19:21] LABS: Absolute Lymphocytes (CBC) 1.6 K/uL (0.7-4.9); Basophils % 0.3 % (0-1.3); MPV 8.7 fL (7.6-11.3); RBC Red Blood Cell Count 5.77 M/uL (4.33-5.43)
[2019-09-30 19:27] LABS: ALT/SGPT 34 U/L (12-78); AST/SGOT 22 U/L (15-37); Albumin 4.1 g/dL (3.4-5.0); Alkaline Phosphatase 87 U/L (45-117); BUN Blood Urea Nitrogen 13 mg/dL (7-18); Bicarbonate 32 mmol/L (21-32); Bilirubin Direct 0.1 mg/dL (0-0.2); Bilirubin Total 0.5 mg/dL (0.2-1.0); Glucose Level 104 mg/dL (74-106); Lipase 122 U/L (73-393); Potassium 3.7 mmol/L (3.5-5.1); Protein, Total 8.1 g/dL (6.4-8.2); Sodium Level 140 mmol/L (136-145)
--- NOTE | 2019-09-30 23:19 | ER ---
Nurse's Notes [facility] Name: Elias Billy Age: 29 yrs Sex: Male : 1990 Arrival Date: 09/30/2019 Time: 15:07 Bed 6 Private MD: Diagnosis: Lower abdominal pain, unspecified;Constipation Presentation: 09/29 15:11 Chief complaint: Patient states: RLQ pain that began yesterday. Sent by Dr. Powell to r/o ss appendicitis. Coronavirus screen: Proceed with normal triage. Patient denies a cough. Patient denies shortness of breath or difficulty breathing. Patient denies measured and/or subjective temperature greater than 100.4F prior to today's visit. Patient denies travel on a cruise ship or to a country the [facility] currently lists as an affected area. Patient denies contact with known and/or suspected case of COVID-19. Ebola Screen: Patient denies exposure to infectious person. Patient denies travel to an Ebola-affected area in the 21 days before illness onset. Initial Sepsis Screen: Does the patient meet any 2 criteria? No. Patient's initial sepsis screen is negative. Does the patient have a suspected source of infection? No. Patient's initial sepsis screen is negative. Risk Assessment: Do you want to hurt yourself or someone else? Patient reports no desire to harm self or others. Onset of symptoms was September 29, 2019. 15:11 Method Of Arrival: Ambulatory ss 15:11 Acuity: SUSIE 3 ss Historical: - Allergies: 15:15 No Known Allergies; ss - Home Meds: 15:15 None [Active]; ss - PMHx: 15:15 ruptured disk; Anxiety; Cellulitis; Depression; Panic Attacks; punctured disc; ss - PSHx: 15:15 None; ss - Immunization history:: Adult Immunizations up to date. - Social history:: Smoking status: Patient denies any tobacco usage or history of. Screenin:00 Abuse screen: Denies threats or abuse. Nutritional screening: No deficits noted. em Tuberculosis screening: No symptoms or risk factors identified. Fall Risk None identified. Assessment: 18:55 General: Appears in no apparent distress. comfortable, Behavior is calm, cooperative, em appropriate for age, Denies fever. Pain: Complains of pain in right lower quadrant Pain currently is 0 out of 10 on a pain scale. Neuro: Level of Consciousness is awake, alert, obeys commands, Oriented to person, place, time, situation, Appropriate for age. Cardiovascular: Capillary refill < 3 seconds Patient's skin is warm and dry. Respiratory: Airway is patent Respiratory effort is even, unlabored, Respiratory pattern is regular, symmetrical. GI: Abdomen is flat, Bowel sounds present X 4 quads. Abd is soft X 4 quads Abdomen is tender to palpation in right lower quadrant Reports nausea, Patient currently denies diarrhea, vomiting. Derm: Skin is intact, is healthy with good turgor, Skin is pink, warm \T\ dry. Musculoskeletal: Capillary refill < 3 seconds, Range of motion: intact in all extremities. 19:20 General: Appears in no apparent distress. comfortable, Behavior is calm, cooperative, rr5 appropriate for age. 19:20 Pain: Complains of pain in right upper quadrant Quality of pain is described as aching, rr5 Pain began gradually, Is intermittent. Neuro: Level of Consciousness is awake, alert, obeys commands, Oriented to person, place, time, situation. Cardiovascular: Capillary refill < 3 seconds Patient's skin is warm and dry. Respiratory: Airway is patent Respiratory effort is even, unlabored, Respiratory pattern is regular, symmetrical. GI: Abdomen is flat, Reports upper abdominal pain, nausea. : No signs and/or symptoms were reported regarding the genitourinary system. EENT: No signs and/or symptoms were reported regarding the EENT system. Derm: Skin temperature is warm. Musculoskeletal: Capillary refill < 3 seconds. 20:30 Reassessment: Patient appears in no apparent distress at this time. Patient is alert, rr5 oriented x 3, equal unlabored respirations, skin warm/dry/pink. no complaints made. 21:32 Reassessment: Patient appears in no apparent distress at this time. Patient is alert, rr5 oriented x 3, equal unlabored respirations, skin warm/dry/pink. back form CT scan. 22:38 Reassessment: Patient appears in no apparent distress at this time. Patient is alert, rr5 oriented x 3, equal unlabored respirations, skin warm/dry/pink. discharge instruction given and explained without complaints made. Vital Signs: 15:11 BP 130 / 95; Pulse 93; Resp 14; Temp 98.1(TE); Pulse Ox 98% on R/A; Height 5 ft. 11 in. ss (180.34 cm); Pain 0/10; 19:00 BP 125 / 81; Pulse 77; Resp 18; Pulse Ox 100% on R/A; em 20:00 BP 121 / 85; Pulse 85; Resp 19; Pulse Ox 98% ; rr5 21:20 BP 141 / 89; Pulse 76; Resp 16; Pulse Ox 100% ; rr5 22:37 BP 130 / 70; Pulse 90; Resp 16; Temp 97.5; Pulse Ox 99% on R/A; rr5 ED Course: 15:07 Patient arrived in ED. ag5 15:15 Triage completed. ss 15:15 Arm band placed on right wrist. ss 18:55 Miguel A Berrios, RN is Primary Nurse. em 19:00 Patient has correct armband on for positive identification. Placed in gown. Bed in low em position. Call light in reach. Pulse ox on. NIBP on. 19:00 Initial lab(s) drawn, by pa, sent to lab. Inserted saline lock: 22 gauge in right em antecubital area, using aseptic technique. Blood collected. 19:04 Yasir Peralta PA is PHCP. cp 19:04 Ayush Lazaro MD is Attending Physician. cp 19:11 Attending Physician role handed off by Ayush Lazaro MD [facility] 19:11 Yasir Biswas MD is Attending Physician. [facility] 22:38 No provider procedures requiring assistance completed. IV discontinued, intact, rr5 bleeding controlled. Administered Medications: No medications were administered Outcome: 22:19 Discharge ordered by . cp 22:38 Discharged to home ambulatory. rr5 22:38 Condition: stable 22:38 Discharge instructions given to patient, Instructed on discharge instructions, follow up and referral plans. medication usage, Demonstrated understanding of instructions, follow-up care, medications, Prescriptions given X 1. 22:48 Patient left the ED. rr5 Signatures: Yasir Biswas MD MD cha Munoz, Edgar, RN ANANT Mariela Carolina RN RN Yasir Peralta PA PA cp Roque, Raymond, RN RN rr5 Matilde Comer ag5
--- NOTE | 2019-09-30 23:19 | EDPHYS ---
Physician Documentation [facility] Name: Elias Billy Age: 29 yrs Sex: Male : 1990 Arrival Date: 09/30/2019 Time: 15:07 Bed 6 Private MD: ELHAM Physician Yasir Biswas HPI: 09/29 19:00 This 29 yrs old Male presents to ER via Ambulatory with complaints of cp Abdominal Pain, Side Pain. 19:00 The patient presents with abdominal pain right lower quadrant. Onset: The cp symptoms/episode began/occurred yesterday. The symptoms do not radiate. Associated signs and symptoms: Pertinent negatives: nausea and vomiting, constipation, diarrhea, dysuria, fever, testicular pain. Severity of pain: in the emergency department the pain has improved mildly. Historical: - Allergies: 15:15 No Known Allergies; ss - Home Meds: 15:15 None [Active]; ss - PMHx: 15:15 ruptured disk; Anxiety; Cellulitis; Depression; Panic Attacks; punctured disc; ss - PSHx: 15:15 None; ss - Immunization history:: Adult Immunizations up to date. - Social history:: Smoking status: Patient denies any tobacco usage or history of. ROS: 19:05 Constitutional: Negative for body aches, chills, fever, poor PO intake. cp 19:05 Eyes: Negative for injury, pain, redness, and discharge. cp 19:05 ENT: Negative for ear pain, sore throat, difficulty swallowing, difficulty handling secretions. 19:05 Respiratory: Negative for cough, shortness of breath. 19:05 Abdomen/GI: Positive for abdominal pain, Negative for nausea, vomiting, and diarrhea, constipation, black/tarry stool, rectal bleeding. 19:05 Back: Negative for radiated pain. 19:05 : Negative for urinary symptoms, testicular pain 19:05 All other systems are negative. Exam: 19:10 Constitutional: The patient appears in no acute distress, alert, awake, non-toxic, well cp developed, well nourished. 19:10 Head/Face: Normocephalic, atraumatic. cp 19:10 Eyes: Periorbital structures: appear normal, Conjunctiva: normal, no exudate, no injection, Sclera: no appreciated abnormality, Lids and lashes: appear normal, bilaterally. 19:10 ENT: External ear(s): are unremarkable, Nose: is normal, Mouth: Lips: moist, Oral mucosa: moist, Posterior pharynx: is normal, airway is patent, no erythema, no exudate. 19:10 Chest/axilla: Inspection: normal, Palpation: is normal, no crepitus, no tenderness. 19:10 Cardiovascular: Rate: normal, Rhythm: regular. 19:10 Respiratory: the patient does not display signs of respiratory distress, Respirations: normal, no use of accessory muscles, no retractions, labored breathing, is not present, Breath sounds: are clear throughout, no decreased breath sounds, no stridor, no wheezing. 19:10 Abdomen/GI: Inspection: abdomen appears normal, Bowel sounds: active, all quadrants, Palpation: soft, in all quadrants, mild abdominal tenderness, in the right lower quadrant, rebound tenderness, is not appreciated, involuntary guarding, is not appreciated. 19:10 Back: pain, is absent, ROM is normal. 19:10 Skin: cellulitis, is not appreciated, no rash present. Vital Signs: 15:11 BP 130 / 95; Pulse 93; Resp 14; Temp 98.1(TE); Pulse Ox 98% on R/A; Height 5 ft. 11 in. ss (180.34 cm); Pain 0/10; 19:00 BP 125 / 81; Pulse 77; Resp 18; Pulse Ox 100% on R/A; em 20:00 BP 121 / 85; Pulse 85; Resp 19; Pulse Ox 98% ; rr5 21:20 BP 141 / 89; Pulse 76; Resp 16; Pulse Ox 100% ; rr5 22:37 BP 130 / 70; Pulse 90; Resp 16; Temp 97.5; Pulse Ox 99% on R/A; rr5 MDM: 19:11 Patient medically screened. adalberto 19:30 Differential diagnosis: appendicitis, bowel obstruction, cholecystitis, Cholelithiasis, cp gastritis, Pyelonephritis, Testicular Torsion, Ureterolithiasis, urinary tract infection. 22:18 Data reviewed: vital signs, nurses notes, lab test result(s), radiologic studies, CT cp scan. 22:18 Counseling: I had a detailed discussion with the patient and/or guardian regarding: the cp historical points, exam findings, and any diagnostic results supporting the discharge/admit diagnosis, lab results, radiology results, to return to the emergency department if symptoms worsen or persist or if there are any questions or concerns that arise at home. Response to treatment: the patient's symptoms have markedly improved after treatment, and as a result, I will discharge patient. Special discussion: Based on the patient's Hx, exam, and Dx evaluation, there is no indication for emergent surgery or inpatient Tx. It is understood by the patient/guardian that if the Sx's persist or worsen they need to return immediately for re-evaluation. ED course: VSS. Labs and CT reviewed that returned negative for acute findings. Pain improved. 09/29 18:55 Order name: Basic Metabolic Panel; Complete Time: 20:11 em 09/29 18:55 Order name: CBC with Diff; Complete Time: 20:11 em 09/29 20:11 Interpretation: Normal except: RBC 5.77; HCT 50.0. cp 09/29 18:55 Order name: Hepatic Function; Complete Time: 20:11 em 09/29 18:55 Order name: Lipase; Complete Time: 20:11 em 09/29 18:55 Order name: IV Saline Lock; Complete Time: 19:07 em 09/29 19:23 Order name: CT Abd/Pelvis - PO and IV Contrast cp 09/29 18:55 Order name: Labs collected and sent; Complete Time: 19:07 em Administered Medications: No medications were administered Disposition: 09/30 06:03 Co-signature as Attending Physician, Yasir Biswas MD I agree with the assessment and adalberto plan of care. Disposition: 09/30/19 22:19 Discharged to Home. Impression: Lower abdominal pain, unspecified, Constipation. - Condition is Stable. - Discharge Instructions: Abdominal Pain, Adult, Constipation, Adult. - Prescriptions for Miralax 17 gram/dose Oral - take 1 packet by ORAL route once daily As needed dilute powder in 8 ounces of water or juice; 10 packet. - Medication Reconciliation Form, Thank You Letter, Antibiotic Education, Prescription Opioid Use form. - Follow up: Private Physician; When: 1 - 2 days; Reason: Worsening of condition. - Problem is new. - Symptoms have improved. Signatures: Dispatcher [employer] Yasir Villanueva MD MD cha Munoz, Edgar, RN RN Mariela Carolina RN RN Page, Yasir, PA PA cp West, Jerome, RN RN rr5 Corrections: (The following items were deleted from the chart) 09/29 22:48 22:19 09/30/2019 22:19 Discharged to Home. Impression: Lower abdominal pain, rr5 unspecified; Constipation. Condition is Stable. Forms are Medication Reconciliation Form, Thank You Letter, Antibiotic Education, Prescription Opioid Use. Follow up: Private Physician; When: 1 - 2 days; Reason: Worsening of condition. Problem is new. Symptoms have improved. cp
[2019-10-01 00:41] VITALS: BP 130/70; TEMP 97.5; O2SAT 99
--- NOTE | 2019-10-01 17:48 | RAD REPORT ---
EXAM DESCRIPTION: CT - Abdomen Pelvis W Contrast - 10/01/2019 6:13 am CLINICAL HISTORY: The patient is 29 years old and is Male; RLQ abdomen pain TECHNIQUE: Axial computed tomography images of the abdomen and pelvis with intravenous contrast. S agittal and coronal reformatted images were created and reviewed. This CT exam was performed using one or more of the following dose reduction techniques: automated exposure control, adjustment of t he mA and/or kV according to patient size, and/or use of iterative reconstruction technique. DLP: 2849 mGy*cm COMPARISON: CT abdomen and pelvis dated November 22, 2018. FINDINGS: LUNG BASES: Mild bibasilar atelectasis or scarring. No focal consolidation or pleural e ffusion. HEART: Visualized heart is normal. ABDOMEN: LIVER: Unremarkable. No mass. GALLBLADDER AND BILE DUCTS: Unremarkable. No calcified stones. No ductal dilation. PANCREAS: Unremarkable. No mass. No ductal dilation. SPLEEN: Unremarkable. No splenomegaly. ADRENALS: Unremarkable. No mass. KIDNEYS AND URETERS: Unremarkable. No solid mass. No hydronephrosis. STOMACH AND BOWEL: Mild to moderate stool burden. Enteric contrast is seen throughout the mid and distal small bowel and cecum. No obstruction. No mucosal thickening. PELVIS: APPENDIX: The appendix is seen and is within normal limits. BLADDER: Bladder is decompressed. REPRODUCTIVE: Unremarkable as visualized. ABDOMEN and PELVIS: INTRAPERITONEAL SPACE: Unremarkable. No free air. No significant fluid collection. BONES/JOINTS: No acute fracture. No dislocation. SOFT TISSUES: Unremarkable. VASCULATURE: Unremarkable. No abdominal aortic aneurysm. LYMPH NODES: Unremarkable. No enlarged lymph nodes. IMPRESSION: 1. No acute abdominal or pelvic abnormality. Normal-appearing appendix. 2. Mild to moderate stool burden. Correlate for constipation. Electronically signed by: Bassam Ervin DO 09/30/2019 10:06 PM CDT Due to temporary technical issues with the PACS/Fluency reporting system, reports are being signed by the in house radiologist without Review as a courtesy to ensure prompt reporting. The interpreting r adiologist is fully responsible for the content of the report.
== END 2019-09-30 22:48 | disposition home or self-care (01) ==
LOC: ER 15:04
DX: K59.00 Constipation, unspecified (principal)
CPT/HCPCS: 85025; 80048; 36415; 80076; 83690; 74177; 99284; Q9967

== ENCOUNTER 2020-08-15 22:19 | Emergency (ER) | payer OTHER ==
[2020-08-15 23:50] LABS: Absolute Lymphocytes (CBC) 1.8 K/uL (0.7-4.9); Basophils % 0.7 % (0-1.3); Hematocrit 47.5 % (39.6-49.0); Lymphocytes % 18.2 % (15.3-44.8); MPV 9.1 fL (7.6-11.3); RBC Red Blood Cell Count 5.56 M/uL (4.33-5.43)
[2020-08-15] MEDS ORDERED: NA CHLORIDE 0.9% 1,000 ML ONE (23:50)
[2020-08-16 00:02] LABS: Protime INR 1.03
[2020-08-16 00:10] LABS: ALT/SGPT 33 U/L (12-78); AST/SGOT 17 U/L (15-37); Albumin 3.8 g/dL (3.4-5.0); Alkaline Phosphatase 90 U/L (45-117); BUN Blood Urea Nitrogen 14 mg/dL (7-18); Bicarbonate 28 mmol/L (21-32); Bilirubin Direct < 0.1 mg/dL (0-0.2); Bilirubin Total 0.3 mg/dL (0.2-1.0); Glucose Level 94 mg/dL (74-106); Magnesium 2.3 mg/dL (1.8-2.4); Potassium 3.9 mmol/L (3.5-5.1); Protein, Total 7.6 g/dL (6.4-8.2); Sodium Level 140 mmol/L (136-145); Troponin (Emerg Dept Use Only) 0.02 ng/mL (0.0-0.045)
[2020-08-16 00:25] LABS: NT PRO-BNP < 5 pg/mL (<125)
[2020-08-16] MEDS ORDERED: ACETAMINOPHEN 500 MG TAB ONE (00:36)
[2020-08-16 01:12] LABS: Barbiturates NEGATIVE (NEGATIVE); Benzodiazepines NEGATIVE (NEGATIVE); Cocaine NEGATIVE (NEGATIVE); METHAMPHETAM NEGATIVE (NEGATIVE); Methadone NEGATIVE (NEGATIVE); Opiates NEGATIVE (NEGATIVE); Phencyclidine NEGATIVE (NEGATIVE); THC Cannibis NEGATIVE (NEGATIVE)
--- NOTE | 2020-08-16 01:59 | EDPHYS ---
Physician Documentation [facility] Name: Elias Billy Age: 30 yrs Sex: Male : 1990 Arrival Date: 08/15/2020 Time: 22:21 Bed 17 Private MD: ED Physician Armando Muniz HPI: 08/15 23:20 This 30 yrs old Male presents to ER via Ambulatory with complaints of Syncope. cp 23:20 The patient has experienced syncope, lost consciousness. cp 23:20 Onset: The symptoms/episode began/occurred today. Duration: This was a single episode, cp that lasted an unknown period of time. 23:20 Associated injury: The patient did not suffer any apparent associated injury. cp Associated signs and symptoms: Pertinent positives: lightheadedness, palpitations, Pertinent negatives: abdominal pain, chest pain, combativeness, confusion, headache, numbness. Current symptoms: Currently, the patient is not experiencing any symptoms, the patient feels back to baseline. Patient reports he was at home and awoke from sleep, got up and went into restroom, urinated and became lightheaded, vision darkened and patient reports brother observed him lose consciousness. Historical: - Allergies: 22:54 No Known Allergies; iw - Home Meds: 22:54 None [Active]; iw - PMHx: 22:54 Anxiety; Cellulitis; Depression; Panic Attacks; punctured disc; ruptured disk; iw - PSHx: 22:54 None; iw - Immunization history:: Adult Immunizations not up to date, Client reports having NOT received the Covid vaccine. - Social history:: Smoking status: Patient reports the use of cigarette tobacco products, cigars. ROS: 23:25 Constitutional: Negative for body aches, chills, fever, poor PO intake. cp 23:25 Eyes: Negative for injury, pain, redness, and discharge. cp 23:25 ENT: Negative for ear pain, sore throat, difficulty swallowing, difficulty handling cp secretions. 23:25 Cardiovascular: Positive for history of palpitations, Negative for chest pain. 23:25 Respiratory: Negative for cough, shortness of breath, wheezing. 23:25 Abdomen/GI: Negative for abdominal pain, nausea, vomiting, and diarrhea. 23:25 Neuro: Positive for syncope, Negative for altered mental status, headache, weakness. 23:25 Back: Negative for radiated pain. cp 23:25 All other systems are negative. Exam: 23:30 Constitutional: The patient appears in no acute distress, alert, awake, cp non-diaphoretic, non-toxic, well developed, well nourished, obese. 23:30 Head/Face: Normocephalic, atraumatic. cp 23:30 Eyes: Periorbital structures: appear normal, Pupils: equal, round, and reactive to light and accomodation, Extraocular movements: intact throughout, Conjunctiva: normal, no exudate, no injection, Sclera: no appreciated abnormality, Lids and lashes: appear normal, bilaterally. 23:30 ENT: External ear(s): are unremarkable, Nose: is normal, Mouth: Lips: moist, Oral mucosa: moist, Posterior pharynx: Airway: no evidence of obstruction, patent. 23:30 Neck: ROM/movement: is normal, is supple, without pain, no range of motions limitations. 23:30 Chest/axilla: Inspection: normal, Palpation: is normal, no crepitus, no tenderness. 23:30 Cardiovascular: Rate: normal, Rhythm: regular, Edema: is not appreciated, JVD: is not appreciated. 23:30 Respiratory: the patient does not display signs of respiratory distress, Respirations: normal, no use of accessory muscles, labored breathing, is not present, Breath sounds: are clear throughout, no decreased breath sounds. 23:30 Abdomen/GI: Inspection: abdomen appears normal, Palpation: abdomen is soft and non-tender, in all quadrants. 23:30 Neuro: Orientation: to person, place \T\ time. Mentation: is normal, Cerebellar function: is grossly normal, Motor: moves all fours, strength is normal, Sensation: is normal. 23:55 ECG was reviewed by the Attending Physician. cp Vital Signs: 22:51 BP 121 / 94; Pulse 97; Resp 16; Temp 97.1; Pulse Ox 98% on R/A; iw 23:56 BP 123 / 81 Supine; Pulse 95; Resp 16; Pulse Ox 98% on R/A; jm8 23:56 BP 121 / 79 Sitting; Pulse 93; Resp 16; Pulse Ox 98% on R/A; jm8 23:56 BP 121 / 85 Standing; Pulse 90; Resp 16; Pulse Ox 98% on R/A; jm8 MDM: 23:09 Patient medically screened. 08/16 00:00 Differential Diagnosis: cardiac arrhythmia, cerebrovascular accident, GI bleed, cp idiopathic syncope, seizure, vasovagal episode. 01:57 Data reviewed: vital signs, nurses notes, lab test result(s), EKG, radiologic studies, cp CT scan, plain films. 01:57 Test interpretation: by ED physician or midlevel provider: ECG, chest xray negative for cp infiltrates. Counseling: I had a detailed discussion with the patient and/or guardian regarding: the historical points, exam findings, and any diagnostic results supporting the discharge/admit diagnosis, lab results, radiology results, the need for outpatient follow up, a family services manager, to return to the emergency department if symptoms worsen or persist or if there are any questions or concerns that arise at home. Response to treatment: the patient's symptoms have markedly improved after treatment. 08/15 23:23 Order name: Basic Metabolic Panel; Complete Time: 00:51 cp 08/15 23:23 Order name: CBC with Diff; Complete Time: 00:51 cp 08/16 00:51 Interpretation: Normal except: RBC 5.56. cp 08/15 23:23 Order name: LFT's; Complete Time: 00:51 cp 08/16 01:16 Interpretation: Normal except: GLOB 3.8; A/G 1.0. cp 08/15 23:23 Order name: Magnesium; Complete Time: 00:51 cp 08/15 23:23 Order name: NT PRO-BNP; Complete Time: 00:51 cp 08/15 23:23 Order name: PT-INR; Complete Time: 00:51 cp 08/15 23:23 Order name: Troponin (emerg Dept Use Only); Complete Time: 00:51 cp 08/15 23:23 Order name: XRAY Chest (1 view) 08/15 23:23 Order name: UDS; Complete Time: 01:16 cp 08/15 23:23 Order name: TSH; Complete Time: 00:51 cp 08/15 23:23 Order name: D-Dimer; Complete Time: 00:51 cp 08/16 00:51 Interpretation: Within normal limits: D-DIMER < 215; Reviewed. 08/16 01:05 Order name: CT Head Brain wo Cont cp 05/24 23:09 Order name: Orthostatics; Complete Time: 23:59 cp 08/15 23:09 Order name: EKG; Complete Time: 23:09 cp 08/15 23:09 Order name: EKG - Nurse/Tech; Complete Time: 23:52 cp 08/15 23:23 Order name: Cardiac monitoring; Complete Time: 23:51 cp 08/15 23:23 Order name: IV Saline Lock; Complete Time: 23:52 cp 08/15 23:23 Order name: Labs collected and sent; Complete Time: 23:52 cp 08/15 23:23 Order name: O2 Per Protocol; Complete Time: 23:52 cp 08/15 23:23 Order name: O2 Sat Monitoring; Complete Time: :52 cp EC/24 23:55 Rate is 90 beats/min. Rhythm is regular. MN interval is normal. QRS interval is normal. cp QT interval is normal. T waves are Flattened in lead III. Interpreted by me. Reviewed by me. Administered Medications: 23:51 Drug: NS 0.9% 1000 ml Route: IV; Rate: 1 bolus; Site: right antecubital; jm8 08/16 00:19 Drug: Tylenol 1000 mg Route: PO; jm8 01:33 Follow up: Response: No adverse reaction; Pain is decreased jmSadaf Point of Care Testin:16 not ordered by MD bryant Ranges: Critical Glucose Levels:Adult <50 mg/dl or >400 mg/dl <40 mg/dl or >180 mg/dl Disposition: 05:04 Co-signature as Attending Physician, Armando Muniz MD I agree with the assessment and tw plan of care. Disposition: 08/16/20 01:58 Discharged to Home. Impression: Palpitations, Syncope and collapse. - Condition is Stable. - Discharge Instructions: Holter Monitoring, Palpitations, Syncope. - Medication Reconciliation Form, Thank You Letter, Antibiotic Education, Prescription Opioid Use form. - Follow up: Rafa Adam MD; When: 2 - 3 days; Reason: Recheck today's complaints. - Problem is new. - Symptoms have improved. Signatures: Dispatcher [employer] EDSusi Mays RN RN iw Page, Corey, PA PA cp Wadley, Terrence, MD MD tw Saroj Rosenthal RN RN jm8 Corrections: (The following items were deleted from the chart) 02:17 01:58 08/16/2020 01:58 Discharged to Home. Impression: Palpitations; Syncope and jm8 collapse. Condition is Stable. Forms are Medication Reconciliation Form, Thank You Letter, Antibiotic Education, Prescription Opioid Use. Follow up: Rafa Adam; When: 2 - 3 days; Reason: Recheck today's complaints. Problem is new. Symptoms have improved. cp
--- NOTE | 2020-08-16 01:59 | ER ---
Nurse's Notes [facility] Name: Elias Billy Age: 30 yrs Sex: Male : 1990 Arrival Date: 08/15/2020 Time: 22:21 Bed 17 Private MD: Diagnosis: Palpitations;Syncope and collapse Presentation: 08/15 22:51 Chief complaint: Patient states: was taking a nap and got up , walked around house, iw went to bathroom, was urinating, his heart started pounding and felt like he was losing his vision, opened the door and fainted, fell on the floor, incident occurred about 90 minutes ago , still feels like he has palpitations now and has a headache. Coronavirus screen: At this time, the client does not indicate any symptoms associated with coronavirus-19. Ebola Screen: Patient negative for fever greater than or equal to 101.5 degrees Fahrenheit, and additional compatible Ebola Virus Disease symptoms Patient denies exposure to infectious person. Patient denies travel to an Ebola-affected area in the 21 days before illness onset. No symptoms or risks identified at this time. Initial Sepsis Screen: Does the patient meet any 2 criteria? No. Patient's initial sepsis screen is negative. Does the patient have a suspected source of infection? No. Patient's initial sepsis screen is negative. Risk Assessment: Do you want to hurt yourself or someone else? Patient reports no desire to harm self or others. Onset of symptoms was August 15, 2020. 22:51 Method Of Arrival: Ambulatory iw 22:51 Acuity: SUSIE 3 iw Historical: - Allergies: 22:54 No Known Allergies; iw - Home Meds: 22:54 None [Active]; iw - PMHx: 22:54 Anxiety; Cellulitis; Depression; Panic Attacks; punctured disc; ruptured disk; iw - PSHx: 22:54 None; iw - Immunization history:: Adult Immunizations not up to date, Client reports having NOT received the Covid vaccine. - Social history:: Smoking status: Patient reports the use of cigarette tobacco products, cigars. Screenin:58 Abuse screen: Denies threats or abuse. Denies injuries from another. Nutritional jm8 screening: No deficits noted. Tuberculosis screening: No symptoms or risk factors identified. Fall Risk Fall in past 12 months (25 points). IV access (20 points). Assessment: 23:54 General: Appears in no apparent distress. comfortable, Behavior is calm, cooperative, jm8 appropriate for age. Pain: Complains of pain in face and chest Pain currently is 3 out of 10 on a pain scale. Quality of pain is described as aching, tingling, Pain began 3 hours ago. Neuro: Level of Consciousness is awake, alert, obeys commands, Oriented to person, place, time, Reports headache in entire a syncopal episode. Cardiovascular: No deficits noted. Reports chest pain, lightheadedness, palpitations, syncope, Rhythm is sinus rhythm. Respiratory: Airway is patent Trachea midline Respiratory effort is even, unlabored, Respiratory pattern is regular, symmetrical. GI: No deficits noted. No signs and/or symptoms were reported involving the gastrointestinal system. : No deficits noted. No signs and/or symptoms were reported regarding the genitourinary system. EENT: No deficits noted. No signs and/or symptoms were reported regarding the EENT system. Derm: No deficits noted. No signs and/or symptoms reported regarding the dermatologic system. Skin is intact, is healthy with good turgor, Skin is dry, Skin is pink, warm \T\ dry. Skin temperature is warm. Musculoskeletal: No deficits noted. No signs and/or symptoms reported regarding the musculoskeletal system. Vital Signs: 22:51 BP 121 / 94; Pulse 97; Resp 16; Temp 97.1; Pulse Ox 98% on R/A; iw 23:56 BP 123 / 81 Supine; Pulse 95; Resp 16; Pulse Ox 98% on R/A; jm8 23:56 BP 121 / 79 Sitting; Pulse 93; Resp 16; Pulse Ox 98% on R/A; jm8 23:56 BP 121 / 85 Standing; Pulse 90; Resp 16; Pulse Ox 98% on R/A; jm8 ED Course: 22:21 Patient arrived in ED. ag3 22:53 Triage completed. iw 22:54 Arm band placed on. iw 23:08 Yasir Peralta PA is PHCP. cp 23:08 Armando Muniz MD is Attending Physician. cp 23:38 XRAY Chest (1 view) In Process Unspecified. EDMS 23:58 Patient has correct armband on for positive identification. Bed in low position. Call 8 light in reach. Side rails up X2. 05/25 01:32 CT Head Brain wo Cont In Process Unspecified. EDMS 01:58 Rafa Adam MD is Referral Physician. cp 02:15 No provider procedures requiring assistance completed. IV discontinued, intact. jm8 Administered Medications: 08/15 23:51 Drug: NS 0.9% 1000 ml Route: IV; Rate: 1 bolus; Site: right antecubital; jm8 08/16 00:19 Drug: Tylenol 1000 mg Route: PO; jm8 01:33 Follow up: Response: No adverse reaction; Pain is decreased [email or web address] Point of Care Testin:16 not ordered by MD bryant Ranges: Outcome: 01:58 Discharge ordered by MD. cp 02:15 Discharged to home ambulatory. 8 02:15 Condition: good 02:15 Discharge instructions given to patient, Instructed on discharge instructions, follow up and referral plans. medication usage, Demonstrated understanding of instructions, follow-up care, medications. 02:17 Patient left the ED. jm8 Signatures: Dispatcher [employer] EDKS Susi King RN RN iw Yasir Peralta PA PA Neena Jeffery ag3 Saroj Rosenthal RN RN jm8 Corrections: (The following items were deleted from the chart) 08/15 23:58 23:56 BP 121 / 79; Pulse 93bpm; Resp 16bpm; Pulse Ox 98% RA; Sadaf 8 23:58 23:56 BP 121 / 85; Pulse 90bpm; Resp 16bpm; Pulse Ox 98% RA; annette jm8
[2020-08-16 02:40] VITALS: O2SAT 98
[2020-08-16 02:47] VITALS: TEMP 98.1
[2020-08-16 02:50] VITALS: BP 137/76
--- NOTE | 2020-08-16 10:38 | RAD REPORT ---
EXAM DESCRIPTION: RAD CHEST SINGLE VIEW 08/15/20 CLINICAL HISTORY: COMPARISON: 2018 TECHNIQUE: Single view chest x-ray. FINDINGS: The lungs appear clear of acute infiltrate. The heart is normal in size. IMPRESSION: No acute abnormality is displayed.
--- NOTE | 2020-08-16 11:31 | EKG ---
Test Date: 2020-08-15 Test Time: 23:47:00 Clam Sorter: MEASUREMENT RESULTS: Intervals: Rate: 90 [place]: 162 QRSD: 98 QT: 362 QTc: 442 Noble: P: 26 [place]: 162 QRS: 34 T: 20 INTERPRETIVE STATEMENTS: Normal sinus rhythm Normal ECG Compared to ECG 11/10/2017 14:20:27 No significant changes Electronically Signed On 08-16-20 11:30:57 CDT by Rafa Adam
--- NOTE | 2020-08-16 14:26 | RAD REPORT ---
EXAM DESCRIPTION: CT - Head Brain Wo Cont - 08/16/2020 6:30 am COMPARISON: None. CLINICAL HISTORY: [facility] MAIN SYNCOPE TECHNIQUE: Axial images were obtained from skull base to vertex without intravenous contrast. Imag es viewed on bone and brain windows. Multiplanar reformats were performed. Automated exposure contr ol was utilized on this examination as a dose lowering technique. FINDINGS: Brain parenchyma, ventricles, dura, meninges, and extra-axial spaces: Ventricles and sulci are normal. No abnormal attenuation of brain parenchyma is present. No acute intracranial hemor rhage or abnormal extra-axial fluid collections are present. Vascular structures: No hyperdense arteries or veins. Calvarium, mastoid air cells, paranasal sinuses and orbits: The calvarium is normal. The mastoid air cells are clear. Visualized paranasal sinuses are unremarkable. Orbital structures are unremarkable. IMPRESSION: No acute intracranial abnormality. Electronically signed by: Yeyo Shah MD 08/16/2020 1:45 AM CDT Due to temporary technical issues with the PACS/Fluency reporting system, reports are being signed by the in house radiologist without review as a courtesy to ensure prompt reporting. The interpreting r adiologist is fully responsible for the content of the report.
== END 2020-08-16 02:17 | disposition home or self-care (01) ==
LOC: ER 22:19
DX: R00.2 Palpitations (principal); F17.290 Nicotine dependence, other tobacco product, uncomplicated
CPT/HCPCS: 93005; 85025; 80048; 36415; 83735; 85610; 85379; 80076; 80307 ×8; 84443; 84484; 83880; 70450; 71045; J7030; 99284

== ENCOUNTER 2020-11-30 20:25 | Emergency (ER) | payer OTHER ==
--- NOTE | 2020-11-30 21:35 | RAD REPORT ---
EXAM DESCRIPTION: RAD - Chest Single View - 11/30/2020 9:19 pm CLINICAL HISTORY: CHEST PAIN COMPARISON: Chest Pa And Lat (2 Views) dated 09/15/2020; Chest Single View dated 08/15/2020; Chest Pa And Lat (2 Views) dated 11/10/2017; Chest Pa And Lat (2 Views) dated 01/19/2017 FINDINGS: Lines: None. Lungs: Mild patchy airspace disease bilaterally. Pleural: No significant pleural effusions or pneumothorax. Cardiac: The heart size is within normal limits. Bones: No acute fractures. Other: IMPRESSION: Mild patchy airspace disease concerning for multifocal pneumonia, particularly Covid-19.
[2020-11-30] MEDS ORDERED: ONDANSETRON 4 MG/2 ML VIAL ONE (22:23)
[2020-11-30 22:25] LABS: Absolute Lymphocytes (CBC) 1.8 K/uL (0.7-4.9); Basophils % 0.2 % (0-1.3); Hematocrit 50.5 % (39.6-49.0); Lymphocytes % 21.1 % (15.3-44.8); MPV 8.6 fL (7.6-11.3); RBC Red Blood Cell Count 5.88 M/uL (4.33-5.43)
[2020-11-30 22:50] LABS: ALT/SGPT 43 U/L (12-78); AST/SGOT 20 U/L (15-37); Albumin 4.4 g/dL (3.4-5.0); Alkaline Phosphatase 102 U/L (45-117); BUN Blood Urea Nitrogen 11 mg/dL (7-18); Bicarbonate 29 mmol/L (21-32); Bilirubin Direct 0.1 mg/dL (0-0.2); Bilirubin Total 0.4 mg/dL (0.2-1.0); Glucose Level 101 mg/dL (74-106); Magnesium 2.4 mg/dL (1.8-2.4); NT PRO-BNP 7 pg/mL (<125); Potassium 3.7 mmol/L (3.5-5.1); Protein, Total 8.3 g/dL (6.4-8.2); Sodium Level 139 mmol/L (136-145); Troponin (Emerg Dept Use Only) < 0.02 ng/mL (0.0-0.045)
[2020-11-30 23:28] LABS: Protime INR 1.04
[2020-12-01] MEDS ORDERED: NA CHLORIDE 0.9% 1,000 ML ONE (00:03)
--- NOTE | 2020-12-01 00:46 | ER ---
Nurse's Notes [facility] Name: Elias Billy Age: 30 yrs Sex: Male : 1990 Arrival Date: 11/30/2020 Time: 20:28 Bed 23 Private MD: Diagnosis: Pneumonia due to SARS-associated coronavirus;Dehydration;Muscle weakness (generalized) Presentation: 11/30 20:32 Chief complaint: Patient states: Pt states he hasn't been feeling well for the last day wg or so. States he went to the gym today and after felt very tired and weak. Pt states he was feeling nauseated earlier. States his testicles started hurting today as well as pain all over, including his chest. Pt states he feels "jose numb" all over. Pt reporting various symptoms and sleepy in triage. Pt denies SOB, pain over various body parts are reproducible on palpation. Pt denies feeling febrile, N/V, or diarrhea. Coronavirus screen: Vaccine status: Patient reports receiving the 1st dose of the Covid vaccine. Date September 2020 Client reports previous positive COVID test result. Date of collection: November 15, 2020. Coronavirus screen: Client presents with at least one sign or symptom that may indicate coronavirus-19. Standard/surgical mask placed on the client. Ebola Screen: Patient negative for fever greater than or equal to 101.5 degrees Fahrenheit, and additional compatible Ebola Virus Disease symptoms Patient denies exposure to infectious person. Patient denies travel to an Ebola-affected area in the 21 days before illness onset. No symptoms or risks identified at this time. Initial Sepsis Screen: Does the patient meet any 2 criteria? No. Patient's initial sepsis screen is negative. Does the patient have a suspected source of infection? No. Patient's initial sepsis screen is negative. Risk Assessment: Do you want to hurt yourself or someone else? Patient reports no desire to harm self or others. Onset of symptoms was November 29, 2020 at 12:00. 20:32 Method Of Arrival: Ambulatory 20:32 Acuity: SUSIE 3 wg Triage Assessment: 20:38 General: Appears well groomed, well developed, well nourished, sleepy. General: wg Behavior is drowsy. Pain: Complains of pain in Testicles, generalized. Pain currently is 7 out of 10 on a pain scale. Quality of pain is described as sharp. EENT: No deficits noted. Neuro: No deficits noted. Reports numbness numbness all over. Cardiovascular: Reports fatigue, generalize aches/pains, testicular pain that comes and goes. Respiratory: No deficits noted. GI: No deficits noted. : No deficits noted. Derm: No deficits noted. Historical: - Allergies: 12/01 00:01 No Known Allergies; wr - Immunization history:: Client reports receiving the 1st dose of the Covid vaccine, October 27, 2020. - Social history:: Smoking status: Patient reports the use of cigarette tobacco products, smokes two packs cigarettes per day. - Family history:: not pertinent. - Code Status:: Full code. - Hospitalizations: : No recent hospitalization is reported. - Coronavirus screen:: The patient has NOT traveled to [place] in the past 14 days. Screenin/08 21:53 Abuse screen: Denies threats or abuse. Nutritional screening: No deficits noted. bb Tuberculosis screening: No symptoms or risk factors identified. Fall Risk None identified. Assessment: 21:53 General: Appears in no apparent distress. uncomfortable, Behavior is calm, appropriate bb for age, Reports feeling nauseous. Pain:. Neuro: Level of Consciousness is awake, alert, obeys commands, Oriented to person, place, time, situation. Cardiovascular: Capillary refill < 3 seconds Patient's skin is warm and dry. Respiratory: Respiratory effort is even, unlabored, Respiratory pattern is regular, Breath sounds are clear bilaterally. GI: Abdomen is round Reports nausea. Derm: Skin is pink, warm \\T\\ dry. Musculoskeletal: Circulation, motion, and sensation intact. 12/01 00:03 Reassessment: Patient appears in no apparent distress at this time. Patient and/or wr family updated on plan of care and expected duration. Pain level reassessed. Patient is alert, oriented x 3, equal unlabored respirations, skin warm/dry/pink. 00:43 Reassessment: No changes from previously documented assessment. wr Vital Signs: 11/30 20:32 BP 127 / 89; Pulse 94; Resp 18; Temp 98.4; Pulse Ox 100% on R/A; Weight 128.82 kg; wg Height 5 ft. 11 in. (180.34 cm); Pain 7/10; 21:53 BP 127 / 72; Pulse 103; Resp 18 S; Temp 98(O); Pulse Ox 98% on R/A; bb 23:44 BP 134 / 88; Pulse 95; Resp 16; Temp 98.7; Pulse Ox 99% ; Weight 119.75 kg; Height 5 wr ft. 11 in. (180.34 cm); 12/01 00:44 BP 116 / 74; Pulse 98; Resp 18; Temp 98.5; Pulse Ox 100% ; wr 11/30 23:44 Body Mass Index 36.82 (119.75 kg, 180.34 cm) wr ED Course: 11/30 20:28 Patient arrived in ED. ja2 20:38 Triage completed. wg 20:41 Arm band placed on left wrist. wg 21:19 XRAY Chest (1 view) In Process Unspecified. EDMS 21:53 Patient has correct armband on for positive identification. bb 21:53 No provider procedures requiring assistance completed. Initial lab(s) drawn, by ED bb staff, sent to lab. Inserted saline lock: 20 gauge in right antecubital area, using aseptic technique. Blood collected. Patient maintains SpO2 saturation greater than 95% on room air. 23:17 Joon Frazier MD is Attending Physician. rn 23:57 CT Head Brain wo Cont In Process Unspecified. EDMS Administered Medications: 21:56 Drug: Zofran (Ondansetron) 4 mg Route: IVP; Site: right antecubital; bb 23:47 Drug: NS 0.9% 1000 ml Route: IV; Rate: 1000 ml; Site: left antecubital; wr 12/01 01:42 Drug: Tylenol 650 mg Route: PO; wr 01:42 Drug: Zofran (Ondansetron) 4 mg Route: IVP; Site: right antecubital; wr Outcome: 00:46 Discharge ordered by . rn 02:31 Patient left the ED. wr Signatures: Dispatcher [employer] EDMS Louann Eason RN RN bb Nieto, Roman, MD MD rn Gamba, Liam, RN wg Alexander, Jessica ja2 Robinson, Willena wr Corrections: (The following items were deleted from the chart) 11/30 23:42 23:38 PMHx: Cellulitis; wr wr 23:38 PMHx: Panic Attacks; wr wr 23:42 23:38 PMHx: punctured disc; wr : PMHx: ruptured disk; wr : PMHx: Anxiety; wr PMHx: Depression; wr wr
--- NOTE | 2020-12-01 00:46 | EDPHYS ---
Physician Documentation [facility] Name: Elias Billy Age: 30 yrs Sex: Male : 1990 Arrival Date: 11/30/2020 Time: 20:28 Bed 23 Private MD: ED Physician Joon Frazier HPI: 12/01 00:23 This 30 yrs old Male presents to ER via Ambulatory with complaints of Chest rn Pain, Nausea, generalized weakness. 00:24 Patient reports has felt off for the last few days. States went to go work-up today and rn felt a little short of breath, some chest pain, and felt numb over his whole body. Reports generalized weakness and fatigue. Went home and slept. Reports dizziness and lightheaded. Reports diagnosed with Covid 2 weeks ago but felt like got better, only had 2 days of symptoms. Denies any vomiting or diarrhea. Did take preworkout prior to exercising today. Also reports decreased appetite.. Onset: The symptoms/episode began/occurred 2 day(s) ago. Severity of symptoms: At their worst the symptoms were moderate in the emergency department the symptoms have improved. The patient has not experienced similar symptoms in the past. The patient has not recently seen a physician. Historical: - Allergies: 00:01 No Known Allergies; wr - Immunization history:: Client reports receiving the 1st dose of the Covid vaccine, October 27, 2020. - Social history:: Smoking status: Patient reports the use of cigarette tobacco products, smokes two packs cigarettes per day. - Family history:: not pertinent. - Code Status:: Full code. - Hospitalizations: : No recent hospitalization is reported. - Coronavirus screen:: The patient has NOT traveled to [place] in the past 14 days. ROS: 00:24 Constitutional: Negative for fever, chills, and weight loss, Eyes: Negative for injury, rn pain, redness, and discharge, ENT: Negative for injury, pain, and discharge, Neck: Negative for injury, pain, and swelling, Cardiovascular: Negative for chest pain, palpitations, and edema, Respiratory: Negative for shortness of breath, cough, wheezing, and pleuritic chest pain, Abdomen/GI: Negative for abdominal pain, nausea, vomiting, diarrhea, and constipation, Back: Negative for injury and pain, : Negative for injury, bleeding, discharge, and swelling, MS/Extremity: Negative for injury and deformity, Skin: Negative for injury, rash, and discoloration, Neuro: Negative for seizure. Exam: 00:24 Constitutional: This is a well developed, well nourished patient who is awake, alert, rn and in no acute distress. Head/Face: Normocephalic, atraumatic. Eyes: Periorbital areas with no swelling, redness, or edema. ENT: No stridor Cardiovascular: Regular rate and rhythm. No pulse deficits. Respiratory: No increased work of breathing, no retractions or nasal flaring. Abdomen/GI: Soft, non-tender Skin: Warm, dry MS/ Extremity: Pulses equal, no cyanosis. Neuro: Awake and alert, GCS 15, oriented to person, place, time, and situation. Cranial nerves II-XII grossly intact. Motor strength 5/5 in all extremities. Sensory grossly intact. Cerebellar exam normal. 00:43 ECG was reviewed by the Attending Physician. rn Vital Signs: 11/30 20:32 BP 127 / 89; Pulse 94; Resp 18; Temp 98.4; Pulse Ox 100% on R/A; Weight 128.82 kg; wg Height 5 ft. 11 in. (180.34 cm); Pain 7/10; 21:53 BP 127 / 72; Pulse 103; Resp 18 S; Temp 98(O); Pulse Ox 98% on R/A; bb 23:44 BP 134 / 88; Pulse 95; Resp 16; Temp 98.7; Pulse Ox 99% ; Weight 119.75 kg; Height 5 wr ft. 11 in. (180.34 cm); 12/01 00:44 BP 116 / 74; Pulse 98; Resp 18; Temp 98.5; Pulse Ox 100% ; wr 11/30 23:44 Body Mass Index 36.82 (119.75 kg, 180.34 cm) wr MDM: 11/30 23:17 Patient medically screened. rn 12/01 00:43 Differential Diagnosis COVID, electrolyte abnormality, dehydration, rhabdomyolysis, rn hypertension, diabetes. 00:44 Data reviewed: vital signs, nurses notes, lab test result(s), EKG, radiologic studies, rn CT scan, plain films, and as a result, I will discharge patient. 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 Interpretation: normal. Test interpretation: by ED physician or midlevel provider: ECG, plain radiologic studies, Chest x-ray shows mild bilateral infiltrates consistent with Covid pneumonia. Counseling: I had a detailed discussion with the patient and/or guardian regarding: the historical points, exam findings, and any diagnostic results supporting the discharge/admit diagnosis, lab results, radiology results, the need for outpatient follow up, to return to the emergency department if symptoms worsen or persist or if there are any questions or concerns that arise at home. Response to treatment: the patient's symptoms have mildly improved after treatment, and as a result, I will discharge patient. Special discussion: I discussed with the patient/guardian in detail that at this point there is no indication for admission to the hospital. It is understood, however, that if the symptoms persist or worsen the patient needs to return immediately for re-evaluation. ED course: Patient with x-ray still showing signs of Covid pneumonia. No oxygen requirement. Blood work/EKG and CT head otherwise no acute abnormalities. Most likely just pushed himself too far and still has not completely recovered from his Covid infection. Improved after IV fluids.. 11/30 20:46 Order name: Basic Metabolic Panel; Complete Time: : 11/30 20:46 Order name: CBC with Diff; Complete Time: : 11/30 20:46 Order name: LFT's; Complete Time: : 11/30 20:46 Order name: Magnesium; Complete Time: : 11/30 20:46 Order name: NT PRO-BNP; Complete Time: 23: 11/30 20:46 Order name: PT-INR; Complete Time: 00: wg 11/30 20:46 Order name: Troponin (emerg Dept Use Only); Complete Time: 23: 11/30 20:46 Order name: XRAY Chest (1 view); Complete Time: 23: wg 11/30 20:46 Order name: EKG; Complete Time: 20:46 wg 11/30 23:26 Order name: CT Head Brain wo Cont rn 11/30 20:46 Order name: Cardiac monitoring; Complete Time: 00: 11/30 20:46 Order name: EKG - Nurse/Tech; Complete Time: 22:01 wg 11/30 20:46 Order name: IV Saline Lock; Complete Time: 21:56 wg 11/30 20:46 Order name: Labs collected and sent; Complete Time: 21:56 wg 11/30 20:46 Order name: O2 Per Protocol; Complete Time: 00:09 wg 11/30 20:46 Order name: O2 Sat Monitoring; Complete Time: 00:09 wg EC:43 Rate is 98 beats/min. Rhythm is regular. QRS [place] is Normal. [place] interval is normal. QRS rn interval is normal. QT interval is normal. No Q waves. T waves are Normal. No ST changes noted. Clinical impression: Normal ECG. Interpreted by me. Reviewed by me. Administered Medications: 11/30 21:56 Drug: Zofran (Ondansetron) 4 mg Route: IVP; Site: right antecubital; bb 23:47 Drug: NS 0.9% 1000 ml Route: IV; Rate: 1000 ml; Site: left antecubital; wr 12/01 01:42 Drug: Tylenol 650 mg Route: PO; wr 01:42 Drug: Zofran (Ondansetron) 4 mg Route: IVP; Site: right antecubital; wr Disposition Summary: 12/01/20 00:46 Discharge Ordered Location: Home rn Problem: an ongoing problem rn Symptoms: have improved rn Condition: Stable rn Diagnosis - Pneumonia due to SARS-associated coronavirus rn - Dehydration rn - Muscle weakness (generalized) rn Followup: rn - With: Private Physician - When: As needed - Reason: Recheck today's complaints, Re-evaluation by your physician Discharge Instructions: - Discharge Summary Sheet rn - Dehydration, Adult rn - COVID-19 rn - COVID-19 Frequently Asked Questions rn Forms: - Medication Reconciliation Form rn - Thank You Letter rn - 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 - Prescription Opioid Use rn Prescriptions: - ondansetron 4 mg Oral tablet,disintegrating - place 1 tablet by TRANSLINGUAL route every 8 hours As needed; 20 tablet; rn Refills: 0, Product Selection Permitted Signatures: Dispatcher [employer] Louann Layton RN RN bb Nieto, Roman, MD MD rn Gamba, Liam, Lise Sky wr Corrections: (The following items were deleted from the chart) 11/30 23:38 PMHx: Cellulitis; [facility] 23:38 PMHx: Panic Attacks; [facility] : PMHx: punctured disc; [facility] : PMHx: ruptured disk; [facility] : PMHx: Anxiety; [facility] : PMHx: Depression; [facility]
[2020-12-01] MEDS ORDERED: ONDANSETRON 4 MG/2 ML VIAL ONE (01:58)
[2020-12-01] MEDS ORDERED: ACETAMINOPHEN 325 MG TABLET ONE (01:58)
[2020-12-01 02:41] VITALS: BP 116/74; TEMP 98.5; O2SAT 100
--- NOTE | 2020-12-01 11:20 | RAD REPORT ---
EXAM DESCRIPTION: CT - Head Brain Wo Cont - 12/01/2020 6:24 am CLINICAL HISTORY: Dizziness COMPARISON: CT Head/Brain Without Contrast 08/16/2020 at 1:24 AM TECHNIQUE: Head/brain axial images acquired without contrast. Coronal and sagittal reformats created . Exam performed according to departmental dose-optimization program which includes automated exposur e control, adjustment of mA and/or kV according to patient size, and/or use of iterative reconstructi on technique. FINDINGS: No midline shift, mass effect, intracranial hemorrhage, or hydrocephalus. Brain parenchyma unremarkable. Paranasal sinuses clear. Mastoid air cells clear. No skull fracture or significant skull lesion. IMPRESSION: Unremarkable CT head/brain without contrast. Electronically signed by: Joce Adams MD 12/01/2020 12:13 AM CDT Due to temporary technical issues with the PACS/Fluency reporting system, reports are being signed by the in house radiologist without review as a courtesy to ensure prompt reporting. The interpreting r adiologist is fully responsible for the content of the report.
== END 2020-12-01 02:31 | disposition home or self-care (01) ==
LOC: ER 20:25
DX: U07.1 COVID-19 (principal); J12.82 Pneumonia due to coronavirus disease 2019; E86.0 Dehydration; F17.210 Nicotine dependence, cigarettes, uncomplicated
CPT/HCPCS: 93005; 85025; 80048; 36415; 83735; 85610; 80076; 84484; 83880; 70450; 71045; 96374; 99284; J2405 ×2

== ENCOUNTER 2021-09-05 09:56 | Emergency (ER) | payer OTHER ==
--- OUTSIDE RECORDS SUMMARY | 2021-09-05 09:59 | XMS REPORT | Continuity of Care Document ---
:[address] [facility] t Address [address] [place] [address] Care Team Providers Name Role Phone Pcp, Patient Does Not Have A Primary Care Physician +[id number] Gordy DAVENPORT Attending Clinician Payers Payer Name Policy Type Policy Number Effective Date Expiration Date S ource Problems Condition Condition Condition Status Onset Resolution Last Treating Co mments Source Name Details Category Date Date Treatment Clinician Date No known No known Disease Unive rs active active ity of problems problems [facility] Allergies, Adverse Reactions, Alerts This patient has no known allergies or adverse reactions. Social History Social Habit Start Date Stop Date Quantity Comments Source Tobacco use and 2020-12-09 2020-12-09 Never used [facility] exposure 00:00:00 00:00:00 [facility] Sex Assigned At [birth year] [facility] 00:00:00 00:00:00 [facility] Smoking Status Start Date Stop Date Source Current some day smoker 2020-12-09 00:00:00 [facility] Medications Ordered Filled Start Stop Current Ordering Indication Dosage Frequency Signature Comments Components Source Medication Medication Date Date Medication? Clinician (SIG) Name Name cetirizine Yes 10mg Take 10 mg U nivers 10 mg 9-17 by mouth ity of tablet 13:33: daily. [place] 19 [facility] fluticasone Yes Univer s propionate 08 ity of 50 00:00: [place] mcg/actuati 00 Medical on nasal Branch spray methocarbam Yes 500mg Take 500 U nivers oL 500 mg 8-18 mg by ity of tablet 00:00: mouth as [place] 00 needed. Medical Branch FLOVENT HFA Yes Univer s 110 6-23 ity of mcg/actuati 00:00: [place] on inhaler 00 [facility] Vital Signs Vital Name Observation Time Observation Value Comments Source Diastolic blood 2021-04-13 19:31:00 78 mm[Hg] [facility]ive rs[facility] of [facility] Heart rate 2021-04-13 19:31:00 90 /min [facility] Body temperature 2021-04-13 19:31:00 [facility] Respiratory rate 2021-04-13 19:31:00 18 /min [facility] Body height 2021-04-13 19:31:00 180.3 cm [facility] Body weight 2021-04-13 19:31:00 123.832 kg [facility] BMI 2021-04-13 19:31:00 38.08 kg/m2 [facility] Systolic blood 2021-04-13 19:31:00 125 mm[Hg] Univer s[facility] Procedures This patient has no known procedures. Encounters Start End Encounter Admission Attending Care Care Encounter Source Date/Time Date/Time Type Type Clinicians Facility Department ID 2021-04-13 2021-04-13 JACK Mederos [id number] [facility] 13:30:00 14:00:00 Visit [facility] [id number] i ty of CL[id number] [id number] [id number] Branch Results This patient has no known results.
[2021-09-05] MEDS ORDERED: CLINDAMYCIN 900MG/D5W 900 MG/50 ML IVPB IV ONE (11:23)
[2021-09-05] MEDS ORDERED: TETANUS & DIPHTHERIA TOX,ADULT 0.5 ML VIAL ONE (11:23)
--- NOTE | 2021-09-05 11:34 | ER ---
Nurse's Notes [facility] Name: Elias Billy Age: 31 yrs Sex: Male : 1990 Arrival Date: 09/05/2021 Time: 09:59 Bed 10 Private MD: Diagnosis: Cutaneous abscess of abdominal wall Presentation: 09/05 10:03 Chief complaint: Patient states: he noticed a "pimple-like" spot on his right lower ap3 abdomen. patient states he went to his PCP Saturday, who started him on antibiotics, but reported to patient there was nothing to "squeeze out". Patient states the wound are as gotten larger, and his PCP recommended him be evaluated at the ER in the event he needs an I/D. Patient reports no pain at this time. Coronavirus screen: At this time, the client does not indicate any symptoms associated with coronavirus-19. Ebola Screen: No symptoms or risks identified at this time. Risk Assessment: Do you want to hurt yourself or someone else? Patient reports no desire to harm self or others. Onset of symptoms was September 01, 2021. 10:03 Method Of Arrival: Ambulatory ap3 10:08 Initial Sepsis Screen: Does the patient meet any 2 criteria? No. Patient's initial ap3 sepsis screen is negative. Does the patient have a suspected source of infection? No. Patient's initial sepsis screen is negative. 10:08 Acuity: SUSIE 3 ap3 Triage Assessment: 10:09 General: Appears in no apparent distress. Behavior is calm, cooperative. Pain: Denies ap3 pain. Neuro: Level of Consciousness is awake, alert, obeys commands, Oriented to person, place, time, situation, Appropriate for age Gait is steady. Cardiovascular: Patient's skin is warm and dry. Respiratory: Airway is patent Respiratory effort is even, unlabored. Derm: Abscess located on right lower quadrant. Historical: - Allergies: 10:07 No Known Allergies; ap3 - Home Meds: 10:07 Zyrtec Oral [Active]; ap3 - PMHx: 10:07 seasonal allergies; ap3 - Immunization history:: Client reports receiving the 2nd dose of the Covid vaccine. - Social history:: Smoking status: Patient/guardian denies using tobacco, Patient uses alcohol, occasionally. Screenin:08 Abuse screen: Denies threats or abuse. Nutritional screening: No deficits noted. ap3 Tuberculosis screening: No symptoms or risk factors identified. Fall Risk None identified. Assessment: 11:41 General: Appears in no apparent distress. comfortable, Behavior is calm, cooperative. ss General: Denies fever, feeling ill. Pain: Denies pain. Neuro: [place] Agitation-Sedation Scale (RASS): 0 - Alert and Calm Level of Consciousness is awake, alert, obeys commands, Oriented to person, place, time, situation. Cardiovascular: Capillary refill < 3 seconds is brisk in bilateral fingers. Respiratory: Airway is patent Respiratory effort is even, unlabored, Respiratory pattern is regular, symmetrical. GI: Patient currently denies diarrhea, nausea, vomiting. EENT: Oral mucosa is moist. Derm: Skin is intact, is healthy with good turgor, Skin is dry, Skin is pink, warm \\T\\ dry. normal. Musculoskeletal: Circulation, motion, and sensation intact. Range of motion: intact in all extremities, Swelling absent. 11:43 Reassessment: Awaiting for Cipro infusion to complete prior to discharge. ss 12:10 Reassessment: Patient appears in no apparent distress at this time. Patient and/or ld1 family updated on plan of care and expected duration. Pain level reassessed. Patient is alert, oriented x 3, equal unlabored respirations, skin warm/dry/pink. Vital Signs: 10:03 Pulse 79; Resp 16; Temp 97.6; Pulse Ox 99% ; Weight 120.66 kg; Height 5 ft. 1 in. ap3 (154.94 cm); Pain 0/10; 10:08 BP 124 / 92; ap3 12:10 BP 128 / 89; Pulse 81; Resp 18; Pulse Ox 100% on R/A; ld1 10:03 Body Mass Index 50.26 (120.66 kg, 154.94 cm) ap3 ED Course: 09:59 Patient arrived in ED. as 10:06 Ian Keita NP is PHCP. pm1 10:06 Joon Frazier MD is Attending Physician. pm1 10:09 Triage completed. ap3 10:10 Patient has correct armband on for positive identification. ap3 10:10 Arm band placed on right wrist. ap3 10:51 Mariela Carolina, ANANT is Primary Nurse. ss 11:41 Inserted saline lock: 20 gauge in right antecubital area, using aseptic technique. ss 12:10 No provider procedures requiring assistance completed. IV discontinued, intact, ld1 bleeding controlled, No redness/swelling at site. Administered Medications: 11:30 Drug: Tetanus-Diphtheria Toxoid Adult 0.5 ml {[place] Guide: [employer]. Exp: ss 06/17/2023. Lot #: [id number]. } Route: IM; Site: left deltoid; 11:41 Follow up: Response: No adverse reaction ss 11:41 Drug: Clindamycin 900 mg Route: IVPB; Infused Over: 30 mins; Site: right antecubital; ss 11:56 Follow up: IV Status: Completed infusion ss Medication: 11:41 Vaccine Information Statement (VIS) provided today. Questions and/or concerns ss addressed. VIS edition date: October 2020. Outcome: 11:33 Discharge ordered by . pm1 12:10 Discharged to home ambulatory. ld1 12:10 Condition: stable 12:10 Discharge instructions given to patient, Instructed on discharge instructions, follow up and referral plans. medication usage, Demonstrated understanding of instructions, follow-up care, medications. 12:10 Prescriptions given X 1. 12:11 Patient left the ED. ld1 Signatures: Jeny Bowman Shelby, RN RN ss Ian Keita, KINGS SUPERVISING PRODUCER pm1 Zulay Saravia RN RN ap3 Nakita Newton RN RN ld1
--- NOTE | 2021-09-05 11:34 | EDPHYS ---
Physician Documentation [facility] [place], [place] Name: Elias Billy Age: 31 yrs Sex: Male : 1990 Arrival Date: 09/05/2021 Time: 09:59 Bed 10 Private MD: ED Physician Joon Frazier HPI: 09/05 10:39 This 31 yrs old Male presents to ER via Ambulatory with complaints of Cyst, pm1 Wound Check. 10:39 the patient presents with a swollen area of the right lower quadrant. Description: pm1 raised. Onset: The symptoms/episode began/occurred 3 day(s) ago. Possible cause(s): unknown. Associated signs and symptoms: Pertinent negatives: discharge, drainage, fever. Modifying factors: the symptoms are alleviated by nothing, the symptoms are aggravated by pressure, touching. Severity of symptoms: in the emergency department the symptoms are actually worse. The patient has experienced similar episodes in the past, a few times. The patient has been recently seen by a physician: the patient's primary care provider, with similar presenting complaints, was given a prescription for antibiotics, clindamycin PO started yesterday. Historical: - Allergies: 10:07 No Known Allergies; ap3 - Home Meds: 10:07 Zyrtec Oral [Active]; ap3 - PMHx: 10:07 seasonal allergies; ap3 - Immunization history:: Client reports receiving the 2nd dose of the Covid vaccine. - Social history:: Smoking status: Patient/guardian denies using tobacco, Patient uses alcohol, occasionally. ROS: 10:39 Constitutional: Negative for fever, chills, and weight loss, Cardiovascular: Negative pm1 for chest pain, palpitations, and edema, Respiratory: Negative for shortness of breath, cough, wheezing, and pleuritic chest pain, MS/Extremity: Negative for injury and deformity. 10:39 Neuro: Negative for headache, weakness, numbness, tingling, and seizure. 10:39 Skin: Positive for abscess, of the right lower quadrant. 10:39 All other systems are negative. Exam: 10:39 Constitutional: This is a well developed, well nourished patient who is awake, alert, pm1 and in no acute distress. Head/Face: Normocephalic, atraumatic. 10:39 Back: No spinal tenderness. No costovertebral tenderness. Full range of motion. 10:39 Eyes: Exam is negative for acute changes, Periorbital structures: no acute changes, Extraocular movements: no acute changes. 10:39 ENT: Exam is negative for acute changes, Mouth: no acute changes, Lips: normal, moist, Oral mucosa: normal, pink and intact, moist. 10:39 Cardiovascular: Exam negative for acute changes, Rate: normal, Rhythm: regular, Pulses: no pulse deficits are appreciated. 10:39 Respiratory: Exam negative for acute changes, respiratory distress, shortness of breath, Breath sounds: are clear throughout. 10:39 Skin: Appearance: normal except for affected area, small, cutaneous phlegmon present to RLQ without any drainage or fluctuance present, mild surrounding cellulitis present. 10:39 Neuro: Exam negative for acute changes, Orientation: is normal, Mentation: is normal, Motor: is normal, moves all fours. Vital Signs: 10:03 Pulse 79; Resp 16; Temp 97.6; Pulse Ox 99% ; Weight 120.66 kg; Height 5 ft. 1 in. ap3 (154.94 cm); Pain 0/10; 10:08 BP 124 / 92; ap3 12:10 BP 128 / 89; Pulse 81; Resp 18; Pulse Ox 100% on R/A; ld1 10:03 Body Mass Index 50.26 (120.66 kg, 154.94 cm) ap3 MDM: 10:14 Patient medically screened. pm1 10:35 ED course: Needle aspiration without any purulent drainage. Currently a phlegmon. pm1 Therefore no incision and drainage is recommended. Patient was started on clindamycin yesterday by PCP and has taken three doses. Will give loading dose IV to shorten duration of time for effectiveness of antibiotics. 11:32 Data reviewed: vital signs. Data interpreted: Pulse oximetry: on room air is 99 %. pm1 Interpretation: normal. Counseling: I had a detailed discussion with the patient and/or guardian regarding: the historical points, exam findings, and any diagnostic results supporting the discharge/admit diagnosis, the need for outpatient follow up, a family practitioner, a general surgeon, to return to the emergency department if symptoms worsen or persist or if there are any questions or concerns that arise at home. 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 Exp: ss 06/17/2023. Lot #: [id number]. } Route: IM; Site: left deltoid; 11:41 Follow up: Response: No adverse reaction ss 11:41 Drug: Clindamycin 900 mg Route: IVPB; Infused Over: 30 mins; Site: right antecubital; ss 11:56 Follow up: IV Status: Completed infusion ss Disposition: 18:43 Co-signature as Attending Physician, Joon Frazier MD. rn Disposition Summary: 09/05/21 11:33 Discharge Ordered Location: Home pm1 Problem: new pm1 Symptoms: have improved pm1 Condition: Stable pm1 Diagnosis - Cutaneous abscess of abdominal wall pm1 Followup: pm1 - With: Emergency Department - When: As needed - Reason: Worsening of condition Followup: pm1 - With: Private Physician - When: 2 - 3 days - Reason: Recheck today's complaints, Continuance of care, Re-evaluation by your physician Discharge Instructions: - Discharge Summary Sheet pm1 - Skin Abscess pm1 Forms: - Medication Reconciliation Form pm1 - Thank You Letter pm1 - Antibiotic Education pm1 - Prescription Opioid Use pm1 Prescriptions: - Tramadol 50 mg Oral Tablet - take 1 tablet by ORAL route every 8 hours as needed; 12 tablet; Refills: 0, pm1 Product Selection Permitted Signatures: Joon Frazier MD MD rn Smirch, Shelby, RN RN ss Ian Keita, MEATMAN MEATMAN pm1 Zulay Saravia RN RN ap3
[2021-09-05 12:18] VITALS: TEMP 97.6
[2021-09-05 12:20] VITALS: BP 128/89; O2SAT 100
== END 2021-09-05 12:11 | disposition home or self-care (01) ==
LOC: ER 09:56
DX: L02.211 Cutaneous abscess of abdominal wall (principal); J30.2 Other seasonal allergic rhinitis; Z23 Encounter for immunization
CPT/HCPCS: 90471; 90714; 96374; 99283

== ENCOUNTER 2024-12-24 06:09 | Emergency (ER) | payer OTHER ==
[2024-12-24 06:33] LABS: Absolute Lymphocytes (CBC) 1.7 K/uL (0.7-4.9); Hematocrit 45.0 % (39.6-49.0); Hemoglobin 15.5 g/dL (13.6-17.9); MCH 29.1 pg (27.0-35.0); MCHC 34.5 g/dL (32.0-36.0); MCV 84.5 fL (80-100); MPV 8.3 fL (7.6-11.3); Nucleated RBC Absolute Count 0.0 (0-0); Nucleated Red Blood Cells % 0.1 % (0-0); RBC Red Blood Cell Count 5.33 M/uL (4.33-5.43); White Blood Count 6.60 thou/uL (4.3-10.9)
[2024-12-24] MEDS ORDERED: ONDANSETRON 4 MG/2 ML VIAL ONE (06:44)
[2024-12-24] MEDS ORDERED: MORPHINE 4 MG/ML SYR ONE (06:44)
[2024-12-24 06:54] LABS: Anion Gap 8.0 mEq/L (5.0-15.0); BUN Blood Urea Nitrogen 14.0 mg/dL (7-18); Glucose Level 109.0 mg/dL (74-106); Lipase 38.0 U/L (13-75); Potassium 4.0 mEq/L (3.5-5.1); Troponin High Sensitivity 6.6 pg/mL (<58.9)
--- NOTE | 2024-12-24 07:39 | RAD REPORT ---
EXAMINATION: ONE VIEW CHEST XR CLINICAL INDICATION: Male, 34 years old.,CHEST PAIN TECHNIQUE: Frontal chest projection is submitted. Examination is limited by patient positioning and t echnique. COMPARISON: 11/30/2020. FINDINGS: The lungs are grossly clear although suboptimal inspiratory effort somewhat limits evaluation. No pn eumothorax or sizable effusion. The heart is normal in size. Mediastinal contours are unremarkable. IMPRESSION: No acute intrathoracic abnormalities.
--- NOTE | 2024-12-24 07:41 | ER ---
Nurse's Notes [facility] Name: Elias Billy Age: 34 yrs Sex: Male : 1990 Arrival Date: 12/24/2024 Time: 06:09 Bed 4 Private MD: Diagnosis: Chest pain, unspecified Presentation: 12/24 06:19 Chief complaint: Patient states: PT STATES WHEN HE WOKE UP AT APPROX 5AM LEFT CHEST br2 WALL/SHARP/INTERMITTENT. PT DENIES N/V/SOB. PT STATES HE HAS HAD PROD COUGH AND NASAL CONGESTION. Coronavirus screen: Client denies travel out of the [place] in the last 14 days. Ebola Screen: Patient denies exposure to infectious person. Initial Sepsis Screen: Does the patient meet any 2 criteria? No. Patient's initial sepsis screen is negative. Does the patient have a suspected source of infection? No. Patient's initial sepsis screen is negative. Risk Assessment: Do you want to hurt yourself or someone else? Patient reports no desire to harm self or others. Onset of symptoms was December 24, 2024 at 05:00. 06:19 Method Of Arrival: Ambulatory br2 06:19 Acuity: SUSIE 3 br2 Triage Assessment: 06:22 General: Appears in no apparent distress. comfortable, Behavior is calm, cooperative. br2 Pain: Complains of pain in anterior aspect of left upper chest and left breast Pain does not radiate. Pain currently is 5 out of 10 on a pain scale. Historical: - Allergies: 06:22 No Known Allergies; br2 - PMHx: 06:22 seasonal allergies; br2 - PSHx: 06:22 None; br2 - Immunization history:: Adult Immunizations up to date. - Infectious Disease History:: Denies. - Social history:: Smoking status: Patient reports the use of cigarette tobacco products, denies chronic smoking, but will smoke occasionally, Patient uses alcohol, occasionally. Patient/guardian denies using street drugs. Screenin:20 [facility] ED Fall Risk Assessment (Adult) History of falling in the last 3 months, jj7 including since admission No falls in past 3 months (0 pts) Confusion or Disorientation No (0 pts) Intoxicated or Sedated No (0 pts) Impaired Gait No (0 pts) Mobility Assist Device Used No (0 pt) Altered Elimination No (0 pt) Score/Fall Risk Level 0 - 2 = Low Risk Oriented to surroundings, Maintained a safe environment, Educated pt \T\ family on fall prevention, incl call for assistance when getting out of bed, Assessed \T\ reinforced patient's understanding of fall precautions. Abuse screen: Denies threats or abuse. Nutritional screening: No deficits noted. Tuberculosis screening: No symptoms or risk factors identified. Assessment: 06:20 General: Appears in no apparent distress. comfortable, Behavior is calm, cooperative, jj7 appropriate for age. Pain: Complains of pain in chest Pain began 1 hour ago. Cardiovascular: Reports chest pain. 07:33 Pain: Complains of pain in chest Pain does not radiate. Neuro: Level of Consciousness mb9 is awake, alert, obeys commands, Oriented to person, place, time, situation, Appropriate for age. Cardiovascular: Reports chest pain, Heart tones S1 S2 present Patient's skin is warm and dry. Respiratory: Airway is patent Respiratory effort is even, unlabored, Respiratory pattern is regular, symmetrical. GI: No signs and/or symptoms were reported involving the gastrointestinal system. Musculoskeletal: Range of motion: intact in all extremities. Vital Signs: 06:19 BP 140 / 95; Pulse 89; Resp 18 S; Temp 97.3(TE); Pulse Ox 98% on R/A; Weight 138.8 kg; br2 Height 5 ft. 11 in. ; Pain 5/10; 07:33 BP 123 / 85; Pulse 74; Resp 18; Pulse Ox 100% on R/A; mb9 06:19 Body Mass Index 42.68 (138.80 kg, 180.34 cm) br2 06:19 Pain Scale: Adult br2 ED Course: 06:11 Patient arrived in ED. mr 06:17 Evelio Abarca DO is Attending Physician. tt7 06:20 Patient has correct armband on for positive identification. Provided Education on: USE jj7 OF CALL PAN. Client placed on continuous cardiac and pulse oximetry monitoring. NIBP monitoring applied. alarm security or surveillance monitor on. Pulse ox on. NIBP on. 06:20 Inserted saline lock: 20 gauge in right antecubital area, using aseptic technique. jj7 Blood collected. Flushed with 10 mL NS. Patient maintains SpO2 saturation greater than 95% on room air. 06:22 Triage completed. br2 06:22 Arm band placed on. br2 06:41 Lipase Sent. jj7 06:41 Basic Metabolic Panel Sent. jj7 06:42 CBC with Diff Sent. jj7 06:42 Troponin HS Sent. jj7 06:46 XRAY Chest (1 view) In Process Unspecified. EDMS 07:08 Report given to RETURN GIVEN TO [place]. jj7 07:19 Maddy Figueroa, RN is Primary Nurse. mb9 07:44 No provider procedures requiring assistance completed. mb9 07:44 IV discontinued, intact, bleeding controlled, No redness/swelling at site. Pressure mb9 dressing applied. Administered Medications: 06:48 Drug: Ondansetron IVP 4 mg IVP once; over 2 minutes Route: IVP; Site: right antecubital;jj7 07:41 Follow up: Response: No adverse reaction mb9 06:49 Drug: morphine IVP or IV 4 mg IVP once over 4 mins Route: IVP; Infused Over: 4 mins; jj7 Site: right antecubital; 07:41 Follow up: Response: No adverse reaction mb9 Medication: 06:20 VIS not applicable for this client. jj7 Outcome: 07:40 Discharge ordered by MD. tt7 07:57 Discharged to home ambulatory, mb9 07:57 Condition: stable 07:57 Discharge instructions given to patient, Instructed on discharge instructions, follow up and referral plans. Demonstrated understanding of instructions, follow-up care, 07:57 Patient left the ED. mb9 Signatures: Dispatcher [employer] [facility] Maddy Mcnamara, Reg Reg Salome Delarosa RN RN jjMaddy Condon RN RN mb9 Karen Meek RN RN br2 Evelio Abarca DO DO tt7
--- NOTE | 2024-12-24 07:41 | EDPHYS ---
Physician Documentation [facility] Name: Elias Billy Age: 34 yrs Sex: Male : 1990 Arrival Date: 12/24/2024 Time: 06:09 Bed 4 Private MD: ED Physician Evelio Abarca HPI: 12/24 06:31 This 34 yrs old Male presents to ER via Ambulatory with complaints of Chest tt7 Pain. 06:31 Patient woke up 1 hour prior to arrival with the chest pain, he describes it as a tt7 intermittent sharp/stabbing pain on the left side of his chest. No associated symptoms. He rates the pain 5/10 in severity. Has had similar symptoms in the past but not this severe or frequent. No significant past medical history. Historical: - Allergies: 06:22 No Known Allergies; br2 - PMHx: 06:22 seasonal allergies; br2 - PSHx: 06:22 None; br2 - Immunization history:: Adult Immunizations up to date. - Infectious Disease History:: Denies. - Social history:: Smoking status: Patient reports the use of cigarette tobacco products, denies chronic smoking, but will smoke occasionally, Patient uses alcohol, occasionally. Patient/guardian denies using street drugs. ROS: 06:32 Constitutional: negative for fever. Respiratory: negative for shortness of breath. tt7 Abdomen/GI: negative for abdominal pain, nausea, vomiting, diarrhea. MS/Extremity: negative for injury and deformity. Skin: negative for rash. Neuro: negative for focal weakness. 06:32 Cardiovascular: Positive for chest pain, Negative for palpitations, Exam: 06:32 Constitutional: vital signs reviewed, well appearing. Head/Face: normocephalic, tt7 atraumatic. Eyes: no conjunctival injection, anicteric sclerae. ENT: mucus membranes moist. Neck: trachea midline, no JVD, no meningismus. Chest/axilla: normal chest wall appearance and motion, nontender, no crepitus. Cardiovascular: regular rate and rhythm, no murmurs, no rubs, no lower extremity edema. Respiratory: normal respiratory effort, no accessory muscle use, lungs CTAB. Abdomen/GI: soft, nondistended, nontender, no guarding or rebound, negative Quinonez's sign, no McBurney point tenderness. Back: normal ROM. Skin: warm, dry, intact, normal turgor, normal color, no rash. MS/ Extremity: normal ROM of extremities, no gross deformities. Neuro: alert and oriented with appropriate mental status, normal speech, follows commands, no focal neurologic deficits. Psych: appropriate mood and affect. Vital Signs: 06:19 BP 140 / 95; Pulse 89; Resp 18 S; Temp 97.3(TE); Pulse Ox 98% on R/A; Weight 138.8 kg; br2 Height 5 ft. 11 in. ; Pain 5/10; 07:33 BP 123 / 85; Pulse 74; Resp 18; Pulse Ox 100% on R/A; mb9 06:19 Body Mass Index 42.68 (138.80 kg, 180.34 cm) br2 06:19 Pain Scale: Adult br2 MDM: 06:17 Medical Screening Exam initiated tt7 06:33 Differential diagnosis: abnormal EKG, acute myocardial infarction, anxiety, chest wall tt7 pain, costochondritis, gastroesophageal reflux disease (GERD), pancreatitis, pneumonia, pneumothorax, pulmonary embolus. Data reviewed: vital signs, nurses notes, lab test result(s), EKG, radiologic studies. ED course: I independently interpreted the patient's EKG performed on 12/24/2024 at 626. On my interpretation, EKG demonstrates normal sinus rhythm, ventricular rate 83 bpm, normal axis, normal QRS interval, normal ST segments, no STEMI. ED course: Well-appearing 34-year-old male with atypical chest pain, vital signs are stable, physical exam reassuring, EKG nonischemic, standard cardiac workup ordered, parenteral opiate and antiemetic administered, low suspicion for ACS, pulmonary embolism ruled out with PERC rule. 06:36 ED course: Cardiac monitoring was ordered due to the potential for ischemia causing tt7 dysrythmia. I independently interpreted the patient's cardiac rhythm as normal sinus rhythm at a rate of 83 bpm on the engine monitor. 07:06 HEART Score: History: Slightly Suspicious (0), ECG: Normal (0), Age: < or = 45 years tt7 (0), Risk Factors: No Risk Factors Known (0), Troponin: < or = 1 x Normal Limit (0), Total Score = 0. 07:20 ED course: I independently interpreted the patient's chest x-ray. On my interpretation, tt7 chest x-ray demonstrates no radiographic evidence of acute cardiopulmonary disease. 12/24 06:23 Order name: Basic Metabolic Panel; Complete Time: 06:59 tt7 12/24 06:23 Order name: CBC with Diff; Complete Time: 06:59 tt7 12/24 06:23 Order name: Troponin HS; Complete Time: 06:59 tt7 12/24 06:23 Order name: Lipase; Complete Time: 06:59 tt7 12/24 06:23 Order name: XRAY Chest (1 view); Complete Time: 07:40 tt7 12/24 06:23 Order name: Cardiac monitoring; Complete Time: 06:41 tt7 12/24 06:23 Order name: EKG - Nurse/Tech; Complete Time: 06:41 tt7 12/24 06:23 Order name: IV Saline Lock; Complete Time: 06:41 tt7 12/24 06:23 Order name: Labs collected and sent; Complete Time: 06:41 tt7 12/24 06:23 Order name: O2 Per Protocol; Complete Time: 06:41 tt7 12/24 06:23 Order name: O2 Sat Monitoring; Complete Time: 06:41 tt7 Administered Medications: 06:48 Drug: Ondansetron IVP 4 mg IVP once; over 2 minutes Route: IVP; Site: right antecubital;jj7 07:41 Follow up: Response: No adverse reaction mb9 06:49 Drug: morphine IVP or IV 4 mg IVP once over 4 mins Route: IVP; Infused Over: 4 mins; jj7 Site: right antecubital; 07:41 Follow up: Response: No adverse reaction mb9 Disposition Summary: 12/24/24 07:40 Discharge Ordered Notes: Location: Home tt7 Problem: an acute exacerbation tt7 Symptoms: have improved tt7 Condition: Stable tt7 Diagnosis - Chest pain, unspecified tt7 Followup: tt7 - With: Emergency Department - When: As needed - Reason: Followup: tt7 - With: Private Physician - When: 1 - 2 days - Reason: Recheck today's complaints, Re-evaluation by your physician Discharge Instructions: - Discharge Summary Sheet tt7 - Nonspecific Chest Pain, Adult, [facility] tt7 Forms: - Medication Reconciliation Form tt7 - Antibiotic Education tt7 - Prescription Opioid Use tt7 - Patient Portal Instructions tt7 - Leadership Thank You Letter tt7 Signatures: Dispatcher [employer] EDMS Salome Delarosa RN RN jj7 Karen Meek RN RN br2 Evelio Abarca DO DO tt7 Mdady Figueroa RN mb9 Corrections: (The following items were deleted from the chart) 06:23 06:23 BASIC METABOLIC PANEL+C.LAB.BRZ ordered. EDMS EDMS 06:23 06:23 CBC+H.LAB.BRZ ordered. EDMS EDMS 06: 06:23 Troponin High Sensitivity+C.LAB.BRZ ordered. EDMS EDMS 06:23 06:23 LIPASE+C.LAB.BRZ ordered. EDMS EDMS 06:23 06:23 Chest Single View+RAD.RAD.BRZ ordered. EDMS EDMS
[2024-12-24 08:02] VITALS: TEMP 97.3
[2024-12-24 08:03] VITALS: BP 123/85; O2SAT 100
== END 2024-12-24 07:57 | disposition home or self-care (01) ==
LOC: ER 06:09
DX: R07.9 Chest pain, unspecified (principal); F17.210 Nicotine dependence, cigarettes, uncomplicated
CPT/HCPCS: 93005; 85025; 80048; 36415; 84484; 83690; 71045; 96375; 96374; 99285; J2405